=== PATIENT | female | born 1975 | race Caucasian/White ===

== ENCOUNTER → 2016-08-07 | Outpatient (CLI) | payer OTHER ==
--- NOTE | 2016-08-07 08:23 | MR ---
EXAMINATION TYPE: MR lumbar spine wo con DATE OF EXAM: 08/07/2016 6:29 AM COMPARISON: NONE HISTORY: lumbago w/sciatica CONTRAST: 0 mL intravenous MultiHance. TECHNIQUE: Multiplanar, multisequence images of the lumbar spine were acquired. FINDINGS: Cord terminates at the L1 level. L5-S1: No significant disc bulge or disc herniation. No spinal canal stenosis. No foraminal stenosi s. Mild facet hypertrophy is present.. L4-L5: No significant disc bulge or disc herniation. No spinal canal stenosis. No foraminal stenosi s. Mild facet hypertrophy of ligamentum flavum laxity is posterior lateral thecal sac compression. N o Canal stenosis.. L3-L4: No significant disc bulge or disc herniation. No spinal canal stenosis. No foraminal stenosi s. Neural foramen are patent.. L2-L3: No significant disc bulge or disc herniation. No spinal canal stenosis. No foraminal stenosi s. Neural foramen are patent.. L1-L2: No significant disc bulge or disc herniation. No spinal canal stenosis. No foraminal stenosi s. Neural foramen are patent.. T12-L1: No significant disc bulge or disc herniation. No spinal canal stenosis. No foraminal stenos is. Neural foramen are patent.. IMPRESSION: 1. Mild facet hypertrophy L4-5 L5-S1. Some mild posterior lateral thecal sac compression from facet h ypertrophy at the L4-5 level may be present. 2. No significant disc bulge.
== END | disposition home or self-care (01) ==
LOC: RADMRIMAIN 05:47
PROVIDERS: ATTEND Physician Assistant
DX: M46.97 Unspecified inflammatory spondylopathy, lumbosacral region (principal)
CPT/HCPCS: 72148

== ENCOUNTER → 2016-09-15 | Outpatient (CLI) | payer OTHER ==
[2016-09-08 12:27] VITALS: BMI 34.3
[2016-09-15 12:37] VITALS: BP 138/91; PULSE 76; RESP 16; TEMP 97.2
--- NOTE | 2016-09-15 13:07 | P.CONS ---
History of Present Illness - Reason for Consult Consult date: 09/15/16 - Chief Complaint Lower back pain - History of Present Illness This is a 41-year-old female with more than 10 year history of lower back pain with occasional radiation to the left lower extremity down to the left foot. The pain gets worse by putting pressure on the left side of her lower back and sleeping on it also by walking or sitting for too long. The patient denies any bowel or bladder dysfunction or any weakness in the lower extremities. She sometimes feels numbness and tingling in her left leg when the pain is severe. She had an MRI on the lumbar spine which showed mild facet hypertrophy at L4-L5 and L5-S1 with some mild posterior lateral thecal sac compression from facet hypertrophy at the L4 5 level. The patient has a history of Vicodin abuse for which she has been on Suboxone and then vivitrol monthly IM injection. Right now she takes Neurontin 300 mg at night and ibuprofen plus baclofen. Past medical history: The patient has history of bipolar disease and history of opioid abuse. Past surgical history: She had gastric bypass surgery and cholecystectomy Social history: She lives with her daughters she works part-time in her farm she denies using tobacco marijuana or street drugs. Past Medical History Past Medical History: GERD/Reflux, Hypertension, Osteoarthritis (OA) Additional Past Medical History / Comment(s): Chronic low back pain. History of Any Multi-Drug Resistant Organisms: None Reported Past Surgical History: Cholecystectomy, Hernia Repair, Hysterectomy Additional Past Surgical History / Comment(s): gastric bypass Past Anesthesia/Blood Transfusion Reactions: No Reported Reaction Past Psychological History: Anxiety, Bipolar, Depression Smoking Status: Never smoker Past Alcohol Use History: None Reported Past Drug Use History: None Reported - Past Family History Mother Family Medical History: Cancer Medications and Allergies Home Medications Medication Instructions Recorded Confirmed Type Omeprazole [PriLOSEC] 20 mg PO QAM 07/18/14 09/15/16 History Baclofen [Lioresal] 40 mg PO BID 09/08/16 09/15/16 History FLUoxetine HCL [PROzac] 40 mg PO QAM 09/08/16 09/15/16 History Gabapentin [Neurontin] 300 mg PO TID 09/08/16 09/15/16 History OXcarbazepine [Trileptal] 150 mg PO QAM 09/08/16 09/15/16 History Vistaril (Unknown Dose) 1 tab PO DAILY PRN 09/08/16 09/15/16 History Vivitrol 1 injection IM QMONTH 09/08/16 09/15/16 History amLODIPine [Norvasc] 10 mg PO QAM 09/08/16 09/15/16 History lamoTRIgine [LaMICtal] 100 mg PO QAM 09/08/16 09/15/16 History Acetaminophen [Tylenol] 1,000 mg PO TID PRN 09/15/16 09/15/16 History Ibuprofen [Motrin] 800 mg PO TID 09/15/16 09/15/16 History Allergies Allergy/AdvReac Type Severity Reaction Status Date / Time No Known Allergies Allergy Verified 09/15/16 12:30 Physical Exam Vitals: Vital Signs Temp Pulse Resp BP Pulse Ox 09/15/16 12:32 97.2 F L 76 16 138/91 99 - Psychiatric Psychiatric: A&O x's 3, appropriate affect, intact judgment & insight Neuro exam of the lower extremities showed normal muscle strength and symmetrical deep tendon reflexes bilaterally. Straight leg raising test was mildly positive on the left side. Marc's test negative bilaterally. She has tenderness in the lumbar left paravertebral area. She has normal range of motion of the lumbar spine with more pain with flexion than with extension. Lungs are clear to auscultation heart is regular no murmurs Assessment and Plan Plan: This is a 41-year-old female with left lower back pain with occasional radiation to the left lower extremity, however most of her pain is in the lower back area axially. The patient has a remote history of opioid abuse and she does not want to be back on opioids and I totally agree with this decision and encouraged patient to keep in mind that she is at high risk for opioid abuse if she goes back on them space. There is really no need to be onopioids given the mild changes on the lumbar MRI. We will try to control her pain by combination of interventional pain procedures and non-opioid medications. Also will send her to have physical therapy. I will schedule patient to have lumbar bilateral medial branch block under fluoroscopic guidance and if she gets good relief of pain then we can plan on doing frequency ablation in the near future. As a matter of fact the patient admits that she had these injections previously and they worked very well for her. I thank you for the referral
== END ==
LOC: PNWHC3 11:59
PROVIDERS: ATTEND Anesthesiology
DX: M54.5 Low back pain (principal); F41.9 Anxiety disorder, unspecified; F32.9 Major depressive disorder, single episode, unspecified; F31.9 Bipolar disorder, unspecified; Z79.891 Long term (current) use of opiate analgesic; Z79.1 Long term (current) use of non-steroidal anti-inflammatories (NSAID); Z79.899 Other long term (current) drug therapy
CPT/HCPCS: 99211

== ENCOUNTER 2016-12-23 07:00 | Day surgery (SDC) | payer OTHER ==
[2016-12-16 17:34] VITALS: BMI 38.8
[~2016-12-23 07:00] MED LIST: LACTATED RINGERS 1,000 ML IV ONE
[2016-12-23 07:29] VITALS: RESP 16; TEMP 98.1
[2016-12-23] MEDS ORDERED: LIDOCAINE 1% 20 ML VIAL (10MG/ML) FOR IV START SQ ONE (07:30)
--- NOTE | 2016-12-23 08:16 | P.PCN ---
Date of Procedure: 12/23/16 Preoperative Diagnosis: Lumbar spondylosis without myelopathy Postoperative Diagnosis: Same as above Procedure(s) Performed: Bilateral lumbar medial branch block under fluoroscopic guidance for the medial branches L2, L3, L4, and the dorsal ramus of L5. Implants: Anesthesia: other (Moderate conscious sedation with 2 mg of Versed IV) Surgeon: Dede Liu Pathology: none sent Condition: stable Disposition: PACU Indications for Procedure: Operative Findings: Description of Procedure: The patient was seen in the preop holding area consent was obtained then she was brought into the procedure room and placed in prone position. Skin was prepped with DuraPrep and draped in a sterile manner. Lidocaine 1% was used to numb the skin up at the target points that were chosen as follows: For the L5- S1 level which corresponds to the dorsal ramus of L5 the target points were of the superior medial aspect of the sacral ala on each side of the spine on the AP view of fluoroscopy the L2, L3, and L4 medial branches the target points were the connection between the transverse process and the superior articular process of L3, L4, and L5 vertebra respectively on the oblique views of fluoroscopy. I used 22-gauge 3-1/2 inch Quincke spinal needles for this procedure and after contacting bone at the target points mentioned above I injected 1 mL of Marcaine 0.5%. I did not use any steroids for this procedure and also I did not give any IV fentanyl for sedation. Patient tolerated procedure well.
[2016-12-23] MEDS ORDERED: IV FLUID CONTINUATION 1,000 ML IV ONE (08:21)
--- NOTE | 2016-12-23 08:35 | FL ---
Fluoroscopy HISTORY: Pain 9 seconds fluoroscopy time supplied to the referring clinician. 2 intraoperative C-arm images docume nt the procedure. See dictated report from anesthesia.
[2016-12-23 09:03] VITALS: BP 140/87; PULSE 54
== END 2016-12-23 09:17 | disposition home or self-care (01) ==
LOC: ORPAIN 07:00
PROVIDERS: ATTEND Anesthesiology
DX: M47.816 Spondylosis without myelopathy or radiculopathy, lumbar region (principal); I10 Essential (primary) hypertension; E66.9 Obesity, unspecified
CPT/HCPCS: 99152; 99153

== ENCOUNTER → 2017-10-02 | Outpatient (CLI) | payer OTHER ==
--- NOTE | 2017-10-02 17:24 | XR ---
EXAMINATION TYPE: XR hand complete bilateral DATE OF EXAM: 10/02/2017 COMPARISON: NONE HISTORY: Pain and numbness TECHNIQUE: 7 views of both hands FINDINGS: I see no fracture nor dislocation. Metacarpals are intact. There are no erosions. Joint spa art overall are fairly normal. There is no subluxation. IMPRESSION: Negative bilateral hand exam. No sign of inflammatory arthritis.
--- NOTE | 2017-10-02 17:24 | XR ---
EXAMINATION TYPE: XR wrist complete BILATERAL DATE OF EXAM: 10/02/2017 COMPARISON: NONE HISTORY: Wrist and hand pain TECHNIQUE: 8 views FINDINGS: I see no fracture nor dislocation. Joint spaces are normal. There are no erosions. IMPRESSION: Negative bilateral wrist exam. No sign of inflammatory arthritis..
== END | disposition home or self-care (01) ==
LOC: RADXRMAIN 16:49
PROVIDERS: ATTEND Emergency Medicine
DX: M65.841 Other synovitis and tenosynovitis, right hand (principal); M65.842 Other synovitis and tenosynovitis, left hand; R20.9 Unspecified disturbances of skin sensation

== ENCOUNTER → 2017-11-03 | Outpatient (CLI) | payer OTHER ==
--- NOTE | 2017-11-03 09:54 | XR ---
EXAMINATION TYPE: XR hand complete RT DATE OF EXAM: 11/03/2017 CLINICAL HISTORY: Right hand pain most pronounced in the thumb with known repetitive motion in the pa tient's occupation. TECHNIQUE: Frontal, lateral and oblique images of the right hand are obtained. COMPARISON: 10/02/2017. FINDINGS: There is no acute fracture/dislocation evident in the right hand. There is minimal joint s pace narrowing and opposing surface sclerosis of the first carpometacarpal joint of the right hand. T he remaining joint spaces in the right hand appear within normal limits. The overlying soft tissu e appears unremarkable. IMPRESSION: There is no acute fracture or dislocation in the right hand. Minimal arthropathy at the right first carpometacarpal joint.
== END | disposition home or self-care (01) ==
LOC: RADXRMAIN 09:27
PROVIDERS: ATTEND Emergency Medicine
DX: M19.041 Primary osteoarthritis, right hand (principal)

== ENCOUNTER 2018-08-06 00:21 | Emergency (ER) | payer BC, OTHER ==
[2018-08-06 00:39] VITALS: BP 137/85; PULSE 88; RESP 16; TEMP 98.2
--- NOTE | 2018-08-06 00:54 | ED ---
Extremity Problem HPI - General Chief complaint: Extremity Problem,Nontraumatic Stated complaint: R Middle Finger Pain Time Seen by Provider: 08/06/18 00:39 Source: patient, RN notes reviewed Mode of arrival: ambulatory Limitations: no limitations - History of Present Illness Initial comments: 42-year-old female presents emergency from chief complaint of pain to her right hand third digit. Patient states is swollen, and noticed some drainage. Patient states she's been having increasing pain last few days. Patient states started from which she believes she was picking at her cuticles. He states that her hands are very dry from her work. She states she had a work and to section of her work and was exposed to quite call on her hands which dried them out. Patient reports pain around the nail. Patient offers no complaints. - Related Data Home Medications Medication Instructions Recorded Confirmed Omeprazole [PriLOSEC] 20 mg PO QAM 07/18/14 01/14/17 Baclofen [Lioresal] 20 mg PO BID 09/08/16 01/14/17 FLUoxetine HCL [PROzac] 40 mg PO QAM 09/08/16 01/14/17 Gabapentin [Neurontin] 300 mg PO TID 09/08/16 01/14/17 OXcarbazepine [Trileptal] 150 mg PO QAM 09/08/16 01/14/17 Vivitrol 1 injection IM QMONTH 09/08/16 01/14/17 amLODIPine [Norvasc] 10 mg PO QAM 09/08/16 01/14/17 lamoTRIgine [LaMICtal] 100 mg PO QAM 09/08/16 01/14/17 Acetaminophen [Tylenol] 1,000 mg PO TID PRN 09/15/16 01/14/17 Previous Rx's Medication Instructions Recorded Cephalexin [Keflex] 500 mg PO Q6HR #40 cap 08/06/18 Allergies Allergy/AdvReac Type Severity Reaction Status Date / Time No Known Allergies Allergy Verified 08/06/18 00:38 Review of Systems ROS Statement: Those systems with pertinent positive or pertinent negative responses have been documented in the HPI. ROS Other: All systems not noted in ROS Statement are negative. Past Medical History Past Medical History: GERD/Reflux, Hypertension, Osteoarthritis (OA) Additional Past Medical History / Comment(s): Chronic low back pain. History of Any Multi-Drug Resistant Organisms: None Reported Past Surgical History: Cholecystectomy, Hernia Repair, Hysterectomy Additional Past Surgical History / Comment(s): gastric bypass Past Anesthesia/Blood Transfusion Reactions: No Reported Reaction Past Psychological History: Anxiety, Bipolar, Depression Smoking Status: Never smoker Past Alcohol Use History: None Reported Past Drug Use History: None Reported - Past Family History Mother Family Medical History: Cancer General Exam Limitations: no limitations General appearance: alert, in no apparent distress Head exam: Present: atraumatic, normocephalic, normal inspection Respiratory exam: Present: normal lung sounds bilaterally. Absent: respiratory distress, wheezes, rales, rhonchi, stridor Cardiovascular Exam: Present: regular rate, normal rhythm, normal heart sounds. Absent: systolic murmur, diastolic murmur, rubs, gallop, clicks Extremities exam: Present: other (Right hand third digit there is some erythema and swelling noted along the nail fold, there is an open draining area. Patient has Refill less than 2 seconds full range of motion) Course Vital Signs 08/06/18 00:36 Temperature 98.2 F Pulse Rate 88 Respiratory 16 Rate Blood Pressure 137/85 O2 Sat by Pulse 99 Oximetry Medical Decision Making - Medical Decision Making 42-year-old presented for finger pain. Patient does have paronychia which is opened. There is no need for opening at this time. Patient will be placed on Keflex. She is advised to do warm soaks. She is use to avoid any chemical exposure to her digits. There is no evidence of flexor tenosynovitis at this time. She does have full range of motion neurovascular intact. Disposition Clinical Impression: Paronychia of finger of right hand Disposition: HOME SELF-CARE Condition: Stable Instructions (If sedation given, give patient instructions): Paronychia (ED) Additional Instructions: Please return to the Emergency Department if symptoms worsen or any other concerns. Prescriptions: Cephalexin [Keflex] 500 mg PO Q6HR #40 cap Is patient prescribed a controlled substance at d/c from ED?: No Referrals: Juan Hercules III, MD [Primary Care Provider] - 1-2 days Time of Disposition: 00:54
[2018-08-06] MEDS: CEPHALEXIN 500MG STARTER PACK 4 CAP BTL PO STA (01:13)
[2018-08-06] MEDS: ACET/COD 300 MG/30 MG STARTER PACK 6 TAB BTL PO STA (01:13)
== END 2018-08-06 01:18 | disposition home or self-care (01) ==
LOC: EC 00:21
DX: L03.011 Cellulitis of right finger (principal); K21.9 Gastro-esophageal reflux disease without esophagitis; I10 Essential (primary) hypertension; F31.9 Bipolar disorder, unspecified; F41.9 Anxiety disorder, unspecified; Z79.899 Other long term (current) drug therapy
CPT/HCPCS: 99283

== ENCOUNTER 2019-03-17 00:11 | Emergency (ER) | payer BC ==
[2019-03-17] MEDS ORDERED: KETOROLAC 30 MG/ML 1 ML VIAL IVP STA (00:50)
[2019-03-17] MEDS ORDERED: SODIUM CHLORIDE 0.9% 1,000 ML IV STA (00:50)
[2019-03-17] MEDS ORDERED: ONDANSETRON 4 MG/2 ML VIAL IVP STA (00:50)
[2019-03-17 01:14] LABS: Basophils # (A) 0.1 k/uL (0-0.2); Basophils % (A) 1 %; Eosinophils # (A) 0.1 k/uL (0-0.7); Eosinophils % (A) 3 %; HCT 37.8 % (34.0-46.0); Lymphocytes # (A) 1.5 k/uL (1.0-4.8); Lymphocytes % (A) 28 %; MCH 32.1 pg (25.0-35.0); MCHC 34.5 g/dL (31.0-37.0); MCV 93.2 fL (80.0-100.0); Mean Platelet Volume 5.6; Monocytes # (A) 0.3 k/uL (0-1.0); Monocytes % (A) 6 %; Neutrophils # (A) 3.2 k/uL (1.3-7.7); Neutrophils % (A) 60 %; Platelet Count 252 k/uL (150-450); RBC 4.05 m/uL (3.80-5.40); RDW 12.2 % (11.5-15.5); WBC 5.3 k/uL (3.8-10.6)
[2019-03-17 01:21] LABS: Appearance,Urine Clear (Clear); Bilirubin,Urine Negative (Negative); Blood,Urine Large (Negative); Color,Urine Light Red; Glucose,Urine (UA) Negative (Negative); Ketones,Urine Negative (Negative); Leukocyte Esterase,Urine Small (Negative); Nitrite,Urine Negative (Negative); Protein,Urine 1+ (Negative); RBC,Urine >182 /hpf (0-5); Specific Gravity,Urine 1.011 (1.001-1.035); Urobilinogen,Urine <2.0 mg/dL (<2.0)
[2019-03-17 01:22] LABS: ALT 29 U/L (9-52); AST 27 U/L (14-36); African American GFR (CKD) >90 (>60 ml/min/1.73 sqM); Albumin 4.2 g/dL (3.5-5.0); Alkaline Phosphatase 65 U/L (38-126); Amylase 44 U/L (30-110); Anion Gap 6 mmol/L; Blood Urea Nitrogen 13 mg/dL (7-17); Calcium 9.4 mg/dL (8.4-10.2); Carbon Dioxide 29 mmol/L (22-30); Chloride 104 mmol/L (98-107); Glucose 92 mg/dL (74-99); Potassium 3.9 mmol/L (3.5-5.1); Sodium 139 mmol/L (137-145); Total Bilirubin 0.2 mg/dL (0.2-1.3); Total Protein 6.5 g/dL (6.3-8.2)
--- NOTE | 2019-03-17 01:22 | ED ---
Abdominal Pain HPI - General Chief Complaint: Abdominal Pain Stated Complaint: Blood in Urine, Lower Back Pain Time Seen by Provider: 03/17/19 00:41 Source: patient, RN notes reviewed Mode of arrival: ambulatory Limitations: no limitations - History of Present Illness Initial Comments: 43-year-old female presents emergency from chief complaint of low back pain, hematuria. Patient has noticed that her urine over the last couple days but states is more bright red today. Patient has increasing pain. She does have a history kidney stones but this feels worse. Patient states that she's had some nausea no vomiting no diarrhea no constipation or fevers or chills she generalized does not feel well. Patient had a prior hysterectomy denies any chance . Denies any vaginal bleeding. - Related Data Home Medications Medication Instructions Recorded Confirmed Omeprazole [PriLOSEC] 20 mg PO QAM 07/18/14 01/14/17 Baclofen [Lioresal] 20 mg PO BID 09/08/16 01/14/17 FLUoxetine HCL [PROzac] 40 mg PO QAM 09/08/16 01/14/17 Gabapentin [Neurontin] 300 mg PO TID 09/08/16 01/14/17 OXcarbazepine [Trileptal] 150 mg PO QAM 09/08/16 01/14/17 amLODIPine [Norvasc] 10 mg PO QAM 09/08/16 01/14/17 lamoTRIgine [LaMICtal] 100 mg PO QAM 09/08/16 01/14/17 Acetaminophen [Tylenol] 1,000 mg PO TID PRN 09/15/16 01/14/17 Dextroamphetamine/Amphetamine 30 mg PO BID 03/17/19 03/17/19 [Adderall] Meloxicam [Mobic] 15 mg PO DAILY 03/17/19 03/17/19 Previous Rx's Medication Instructions Recorded Cephalexin [Keflex] 500 mg PO Q8HR #21 cap 03/17/19 Phenazopyridine [Pyridium] 200 mg PO TID #6 tablet 03/17/19 Allergies Allergy/AdvReac Type Severity Reaction Status Date / Time No Known Allergies Allergy Verified 08/06/18 00:38 Review of Systems ROS Statement: Those systems with pertinent positive or pertinent negative responses have been documented in the HPI. ROS Other: All systems not noted in ROS Statement are negative. Past Medical History Past Medical History: GERD/Reflux, Hypertension, Osteoarthritis (OA) Additional Past Medical History / Comment(s): Chronic low back pain. History of Any Multi-Drug Resistant Organisms: None Reported Past Surgical History: Cholecystectomy, Hernia Repair, Hysterectomy Additional Past Surgical History / Comment(s): gastric bypass Past Anesthesia/Blood Transfusion Reactions: No Reported Reaction Past Psychological History: Anxiety, Bipolar, Depression Smoking Status: Never smoker Past Alcohol Use History: None Reported Past Drug Use History: None Reported - Past Family History Mother Family Medical History: Cancer General Exam Limitations: no limitations General appearance: alert, in no apparent distress Head exam: Present: atraumatic, normocephalic, normal inspection Eye exam: Present: normal appearance, PERRL, EOMI. Absent: scleral icterus, conjunctival injection, periorbital swelling Neck exam: Present: normal inspection, full ROM. Absent: tenderness, meningismus, lymphadenopathy Respiratory exam: Present: normal lung sounds bilaterally. Absent: respiratory distress, wheezes, rales, rhonchi, stridor Cardiovascular Exam: Present: regular rate, normal rhythm, normal heart sounds. Absent: systolic murmur, diastolic murmur, rubs, gallop, clicks GI/Abdominal exam: Present: soft, tenderness, normal bowel sounds. Absent: distended, guarding, rebound, rigid Back exam: Present: CVA tenderness (L). Absent: CVA tenderness (R) Neurological exam: Present: alert, oriented X3 Skin exam: Present: warm, dry, intact, normal color. Absent: rash Course Vital Signs 03/17/19 00:33 Temperature 97.9 F Pulse Rate 75 Respiratory 20 Rate Blood Pressure 148/87 O2 Sat by Pulse 98 Oximetry Medical Decision Making - Medical Decision Making CT does not reveal any evidence of renal stone. There is some dilation of the renal pelvis felt to be related to an old injury. Patient CT otherwise unremarkable. Patient urinalysis shows hematuria with moderate amount of bacteria. Labs otherwise unremarkable. Patient we treated for hemorrhagic cystitis. Patient was given antiemetics emergency department. Patient was discharged in stable condition. - Lab Data Result diagrams: 03/17/19 01:05 03/17/19 01:05 Lab Results 03/17/19 03/17/19 03/17/19 Range/Units 01:05 01:05 01:05 WBC 5.3 (3.8-10.6) k/uL RBC 4.05 (3.80-5.40) m/uL Hgb 13.0 (11.4-16.0) gm/dL Hct 37.8 (34.0-46.0) % MCV 93.2 (80.0-100.0) fL MCH 32.1 (25.0-35.0) pg MCHC 34.5 (31.0-37.0) g/dL RDW 12.2 (11.5-15.5) % Plt Count 252 (150-450) k/uL Neutrophils % 60 % Lymphocytes % 28 % Monocytes % 6 % Eosinophils % 3 % Basophils % 1 % Neutrophils # 3.2 (1.3-7.7) k/uL Lymphocytes # 1.5 (1.0-4.8) k/uL Monocytes # 0.3 (0-1.0) k/uL Eosinophils # 0.1 (0-0.7) k/uL Basophils # 0.1 (0-0.2) k/uL Sodium 139 (137-145) mmol/L Potassium 3.9 (3.5-5.1) mmol/L Chloride 104 (98-107) mmol/L Carbon Dioxide 29 (22-30) mmol/L Anion Gap 6 mmol/L BUN 13 (7-17) mg/dL Creatinine 0.64 (0.52-1.04) mg/dL Est GFR (CKD-EPI)AfAm >90 (>60 ml/min/1.73 sqM) Est GFR (CKD-EPI)NonAf >90 (>60 ml/min/1.73 sqM) Glucose 92 (74-99) mg/dL Calcium 9.4 (8.4-10.2) mg/dL Total Bilirubin 0.2 (0.2-1.3) mg/dL AST 27 (14-36) U/L ALT 29 (9-52) U/L Alkaline Phosphatase 65 (38-126) U/L Total Protein 6.5 (6.3-8.2) g/dL Albumin 4.2 (3.5-5.0) g/dL Amylase 44 (30-110) U/L Lipase 55 (23-300) U/L Urine Color Light Red Urine Appearance Clear (Clear) Urine pH 6.0 (5.0-8.0) Ur Specific [place] 1.011 (1.001-1.035) Urine Protein 1+ H (Negative) Urine Glucose (UA) Negative (Negative) Urine Ketones Negative (Negative) Urine Blood Large H (Negative) Urine Nitrite Negative (Negative) Urine Bilirubin Negative (Negative) Urine Urobilinogen <2.0 (<2.0) mg/dL Ur Leukocyte Esterase Small H (Negative) Urine RBC >182 H (0-5) /hpf Urine WBC 94 H (0-5) /hpf Disposition Clinical Impression: Hemorrhagic cystitis Disposition: HOME SELF-CARE Condition: Stable Instructions (If sedation given, give patient instructions): Flank Pain (ED), Urinary Tract Infection in Women (DC) Additional Instructions: Please return to the Emergency Department if symptoms worsen or any other concerns. Prescriptions: Cephalexin [Keflex] 500 mg PO Q8HR #21 cap Phenazopyridine [Pyridium] 200 mg PO TID #6 tablet Is patient prescribed a controlled substance at d/c from ED?: No Referrals: Juan Hercules III, MD [Primary Care Provider] - 1-2 days Quentin Watts MD [STAFF PHYSICIAN] - 1-2 days Time of Disposition: 01:57
--- NOTE | 2019-03-17 01:29 | CT ---
EXAMINATION TYPE: CT abdomen pelvis wo con DATE OF EXAM: 03/17/2019 COMPARISON: 07/18/2014 HISTORY: Flank pain CT DLP: 639.8 mGycm Automated exposure control for dose reduction was used. TECHNIQUE: Helical acquisition of images was performed from the lung bases through the pelvis. FINDINGS: Lung bases are clear. There is no pleural effusion. Heart size is normal. There are multiple clips from bariatric gastric surgery. Stomach is intact. There are clips from chol ecystectomy. Bile ducts are not dilated. Spleen appears normal. There is no pancreatic mass. There is no adrenal mass. Kidneys show normal size. There are bilateral multiple renal calculi that m easure up to 8 mm. There is large right renal pelvis. The ureters are not dilated. I see no evidence of a ureteral calculus. Bladder distends smoothly. There is no inguinal hernia. There is no free flui d in the pelvis. There is hysterectomy. There is no mesenteric edema. There is no sign of a bowel obs truction. Appendix appears normal. There is no free air or fluid. There is no ascites. Lumbar spine i s intact. Bony pelvis is intact. IMPRESSION: NORMAL APPENDIX. THERE ARE FEW BILATERAL NONOBSTRUCTING RENAL CALCULI. BILATERAL ENLARGEMENT OF THE L EFT AND RIGHT RENAL PELVIS COULD RELATE TO PREVIOUS EPISODE OF OBSTRUCTION. NO URETERAL STONE SEEN.
[2019-03-17] MEDS ORDERED: HYDROmorphone 0.5 MG/0.5 ML SYRINGE IVP STA (01:55)
[2019-03-17] MEDS ORDERED: cefTRIAXone IN SWFI 1,000 MG/10 ML SYRINGE IVP STA (01:55)
[2019-03-17] MEDS ORDERED: ACET/COD 300 MG/30 MG STARTER PACK 6 TAB BTL PO STA (01:58)
[2019-03-17] MEDS ORDERED: diphenhydrAMINE 50 MG/ML 1 ML VIAL IVP STA (02:31)
[2019-03-17] MEDS ORDERED: LORazepam 2 MG/ML INJ IV STA (03:20)
[2019-03-17 04:32] VITALS: BP 136/87; PULSE 83; RESP 18; TEMP 98.3
== END 2019-03-17 04:32 | disposition home or self-care (01) ==
LOC: EC 00:11
DX: N30.91 Cystitis, unspecified with hematuria (principal); K21.9 Gastro-esophageal reflux disease without esophagitis; I10 Essential (primary) hypertension; F41.9 Anxiety disorder, unspecified; F31.9 Bipolar disorder, unspecified; Z79.1 Long term (current) use of non-steroidal anti-inflammatories (NSAID); Z79.899 Other long term (current) drug therapy; Z98.84 Bariatric surgery status; Z90.49 Acquired absence of other specified parts of digestive tract
CPT/HCPCS: 36415; 93005; 80053; 82150; 83690; 85025; 81001; 87086; 74176; 99284; 96374; 96375 ×5; 96361; J2060; J1200; J2405; J0696; J1885; J1170

== ENCOUNTER 2022-03-28 16:56 | Observation (INO) | payer BC, OTHER ==
--- NOTE | 2022-03-28 17:50 | ED ---
General Adult HPI - General Chief complaint: Psychiatric Symptoms Stated complaint: mental health Time Seen by Provider: 03/28/22 17:14 Source: EMS Mode of arrival: EMS Limitations: no limitations - History of Present Illness Initial comments: Dictation was produced using [employer] dictation software. please excuse any grammatical, word or spelling errors. Chief Complaint: 46-year-old female presents emergency department for suicidal s tatement History of Present Illness: Paced 46-year-old female she is brought in by EMS. Apparently she was brought in because she had made some suicidal comments. According to EMS she mentioned to family that she wanted to hang herself. It is believed that patient feels depressed because recent passing of her nephew. Patient has any medical complaints. She is however a poor historian because of inebriation. Patient is uncooperative. Unable to obtain ROS secondary to mental status PHYSICAL EXAM: General Impression: Alert and oriented x3, not in acute distress, uncooperative HEENT: Normocephalic atraumatic, extra-ocular movements intact, pupils equal and reactive to light bilaterally, mucous membranes moist. Cardiovascular: Heart regular rate and rhythm Chest: Able to complete full sentences, no retractions, no tachypnea Musculoskeletal: no peripheral edema Motor: no focal deficits noted Neurological: CN II-XII grossly intact, no focal motor or sensory deficits noted Skin: Intact with no visualized rashes Psych: Normal affect and mood ED course: 46-year-old well-appearing female presents emergency department to be evaluated for suicidal statements she made. She denies the use such claims at this time. Signs upon arrival are within acceptable limits. Patient admits to alcohol consumption today. She does have an elevated breath alcohol test. Laboratory evaluation obtained. CBC remarkable. Metabolic panel is negative. Serum alcohol is 298. Patient be admitted observation for alcohol intoxication with consultation to psychiatry. Case was discussed with Eve was willing to accept patients care on behalf of [facility] hospitalist group. - Related Data Home Medications Medication Instructions Recorded Confirmed Omeprazole [PriLOSEC] 20 mg PO DAILY 07/18/14 03/28/22 Dextroamphetamine/Amphetamine 30 mg PO BID 03/17/19 03/28/22 [Adderall] FLUoxetine HCL [PROzac] 20 mg PO DAILY 03/28/22 03/28/22 amLODIPine [Norvasc] 5 mg PO DAILY 03/28/22 03/28/22 Allergies Allergy/AdvReac Type Severity Reaction Status Date / Time No Known Allergies Allergy Verified 03/28/22 18:46 Review of Systems ROS Statement: Those systems with pertinent positive or pertinent negative responses have been documented in the HPI. ROS Other: All systems not noted in ROS Statement are negative. Past Medical History Past Medical History: GERD/Reflux, Hypertension, Osteoarthritis (OA) Additional Past Medical History / Comment(s): Chronic low back pain. History of Any Multi-Drug Resistant Organisms: None Reported Past Surgical History: Cholecystectomy, Hernia Repair, Hysterectomy Additional Past Surgical History / Comment(s): gastric bypass Past Anesthesia/Blood Transfusion Reactions: No Reported Reaction Past Psychological History: Anxiety, Bipolar, Depression Smoking Status: Never smoker Past Alcohol Use History: None Reported Past Drug Use History: None Reported - Past Family History Mother Family Medical History: Cancer General Exam Limitations: no limitations Course Vital Signs 03/28/22 17:13 Temperature 98.2 F Pulse Rate 70 Respiratory 18 Rate O2 Sat by Pulse 100 Oximetry Medical Decision Making - Lab Data Result diagrams: 03/28/22 17:53 03/28/22 17:53 Lab Results 03/28/22 03/28/22 Range/Units 17:53 17:53 WBC 5.5 (3.8-10.6) k/uL RBC 4.77 (3.80-5.40) m/uL Hgb 15.0 (11.4-16.0) gm/dL Hct 43.3 (34.0-46.0) % MCV 90.9 (80.0-100.0) fL MCH 31.4 (25.0-35.0) pg MCHC 34.6 (31.0-37.0) g/dL RDW 13.3 (11.5-15.5) % Plt Count 204 (150-450) k/uL MPV 7.6 Neutrophils % 60 % Lymphocytes % 32 % Monocytes % 3 % Eosinophils % 2 % Basophils % 1 % Neutrophils # 3.3 (1.3-7.7) k/uL Lymphocytes # 1.8 (1.0-4.8) k/uL Monocytes # 0.2 (0-1.0) k/uL Eosinophils # 0.1 (0-0.7) k/uL Basophils # 0.0 (0-0.2) k/uL Sodium 144 (137-145) mmol/L Potassium 3.3 L (3.5-5.1) mmol/L Chloride 106 (98-107) mmol/L Carbon Dioxide 24 (22-30) mmol/L Anion Gap 14 mmol/L BUN 13 (7-17) mg/dL Creatinine 0.59 (0.52-1.04) mg/dL Est GFR (CKD-EPI)AfAm >90 (>60 ml/min/1.73 sqM) Est GFR (CKD-EPI)NonAf >90 (>60 ml/min/1.73 sqM) Glucose 100 H (74-99) mg/dL Calcium 8.5 (8.4-10.2) mg/dL Serum Alcohol 298 H* mg/dL Disposition Clinical Impression: Suicidal ideation, Alcohol intoxication Disposition: ADMITTED IP TO THIS HOSP Condition: Fair Referrals: None,Stated [Primary Care Provider] - 1-2 days Decision Time: 19:28
[2022-03-28 18:00] LABS: Basophils % (A) 1 %; Eosinophils # (A) 0.1 k/uL (0-0.7); Eosinophils % (A) 2 %; HCT 43.3 % (34.0-46.0); Lymphocytes # (A) 1.8 k/uL (1.0-4.8); Lymphocytes % (A) 32 %; MCH 31.4 pg (25.0-35.0); MCHC 34.6 g/dL (31.0-37.0); MCV 90.9 fL (80.0-100.0); Mean Platelet Volume 7.6; Monocytes # (A) 0.2 k/uL (0-1.0); Monocytes % (A) 3 %; Neutrophils # (A) 3.3 k/uL (1.3-7.7); Neutrophils % (A) 60 %; Platelet Count 204 k/uL (150-450); RBC 4.77 m/uL (3.80-5.40); RDW 13.3 % (11.5-15.5); WBC 5.5 k/uL (3.8-10.6)
[2022-03-28 18:19] LABS: African American GFR (CKD) >90 (>60 ml/min/1.73 sqM); Anion Gap 14 mmol/L; Blood Urea Nitrogen 13 mg/dL (7-17); Calcium 8.5 mg/dL (8.4-10.2); Carbon Dioxide 24 mmol/L (22-30); Chloride 106 mmol/L (98-107); Glucose 100 mg/dL (74-99); Non-African American GFR(CKD) >90 (>60 ml/min/1.73 sqM); Potassium 3.3 mmol/L (3.5-5.1); Sodium 144 mmol/L (137-145)
[2022-03-28 18:23] LABS: Alcohol 298 mg/dL
[2022-03-28] MEDS ORDERED: NALOXONE 0.4 MG/ML 1 ML VIAL IV PRN (19:26)
[2022-03-28] MEDS ORDERED: LORazepam 1 MG TAB PO PRN ×4 (21:03)
[2022-03-28] MEDS ORDERED: THIAMINE 100 MG/ML 2 ML VIAL IM STA (21:03)
[2022-03-28] MEDS ORDERED: ONDANSETRON 4 MG/2 ML VIAL IVP PRN (21:04)
[2022-03-28] MEDS ORDERED: POTASSIUM CHLORIDE ER 20 MEQ TAB.ER PO STA ×2 (21:05)
[2022-03-28] MEDS: LORazepam 0.5 MG TAB PO PRN (23:22)
[2022-03-29] MEDS ORDERED: PANTOPRAZOLE 40 MG/10 ML VIAL IVP SCH (09:00)
[2022-03-29] MEDS: FLUoxetine HCL 20 MG CAP PO SCH (09:41)
[2022-03-29] MEDS: amLODIPine 5 MG TAB PO SCH (09:41)
[2022-03-29] MEDS: FOLIC ACID 1 MG TAB PO SCH (09:41)
[2022-03-29] MEDS: MULTIVITAMINS, THERA 1 EACH TAB PO SCH (09:42)
[2022-03-29] MEDS: THIAMINE 100 MG TAB PO SCH (09:42)
[2022-03-29] MEDS: HEPARIN SODIUM,PORCINE/PF 5,000 UNIT/0.5 ML SYRINGE SQ SCH ×2 (09:42→19:28)
[2022-03-29 11:37] LABS: Urine Alcohol Positive (Negative)
[2022-03-29 11:38] LABS: Urine Barbiturate Negative (Negative); Urine Cocaine Negative (Negative); Urine Methadone Negative (Negative); Urine Opiates Negative (Negative); Urine Phencyclidine Negative (Negative)
[2022-03-29] MEDS: ACETAMINOPHEN TAB 325 MG TAB PO PRN ×2 (13:11→19:27)
[2022-03-29] MEDS: LORazepam 0.5 MG TAB PO PRN (16:13)
[2022-03-29] MEDS ORDERED: MELATONIN 3 MG TABLET PO SCH (21:00)
--- NOTE | 2022-03-29 21:13 | P.HPIM ---
History of Present Illness H&P Date: 03/29/22 Chief Complaint: Alcohol intoxication Patient is a 46-year-old female with a known history of hypertension, osteoarthritis, GERD, bipolar disorder, daily alcohol use was brought to the hospital due to alcohol intoxication and also suicidal ideation. Patient apparently upset with her mother and made some comments about suicidal ideation. Patient was brought to the hospital by EMS. Patient states that she was very intoxicated at time and she did not mean to say that. Denies any complaints of nausea vomiting abdominal pain or diarrhea. No cough or sputum production. No recent illnesses. No chest pain or shortness of breath. No fever or chills. Laboratory data showed WBC 5.4 hemoglobin 14.0 and platelets 204 BUN 14 and creatinine 0.49 sodium 144 potassium 3.3 chloride 106 bicarb is 24 UDS is negative. Serum alcohol level is 298. Review of Systems Constitutional: Patient denies any fever or chills . no Generalized weakness. Abdomen: Patient denied any nausea or vomiting or abd. pain Cardiovascular: Patient denies any chest pain or short of breath no palpitations. Respiratory: patient denied any cough . no sputum production. No shortness of breath Neurologic: Patient denied any numbness or tingling headache. Musculoskeletal: Patient denies any complaints of joint swelling or deformity. Skin: Negative Psychiatric: Negative Endocrine: No heat or cold intolerance. No recent weight gain. Genitourinary: No dysuria or hematuria. All other 14 point ROS negative except the above Past Medical History Past Medical History: GERD/Reflux, Hypertension, Osteoarthritis (OA) Additional Past Medical History / Comment(s): Chronic low back pain. History of Any Multi-Drug Resistant Organisms: None Reported Past Surgical History: Cholecystectomy, Hernia Repair, Hysterectomy Additional Past Surgical History / Comment(s): gastric bypass Past Anesthesia/Blood Transfusion Reactions: No Reported Reaction Past Psychological History: Anxiety, Bipolar, Depression Smoking Status: Never smoker Past Alcohol Use History: Daily Additional Past Alcohol Use History / Comment(s): Pt states she drinks daily but is unsure how many drinks per day. - Past Family History Mother Family Medical History: Cancer Medications and Allergies Home Medications Medication Instructions Recorded Confirmed Type Omeprazole [PriLOSEC] 20 mg PO DAILY 07/18/14 03/28/22 History Dextroamphetamine/Amphetamine 30 mg PO BID 03/17/19 03/28/22 History [Adderall] FLUoxetine HCL [PROzac] 20 mg PO DAILY 03/28/22 03/28/22 History amLODIPine [Norvasc] 5 mg PO DAILY 03/28/22 03/28/22 History Allergies Allergy/AdvReac Type Severity Reaction Status Date / Time No Known Allergies Allergy Verified 03/28/22 18:46 Physical Exam Vitals: Vital Signs Temp Pulse Pulse Resp BP BP Pulse Ox 03/29/22 07:00 98.2 F 83 16 174/79 97 03/28/22 20:45 98.2 F 89 17 110/51 97 03/28/22 19:49 82 18 126/76 99 03/28/22 17:13 98.2 F 70 18 100 Intake and Output 03/28/22 03/29/22 03/29/22 22:59 06:59 14:59 Intake Total 0 Balance 0 Intake: Oral 0 Other: Voiding Method Toilet # Voids 1 0 Weight 72.575 kg PHYSICAL EXAMINATION: Patient is lying in the bed comfortably, no acute distress, awake alert and oriented.. HEENT: Normocephalic. Neck is supple. Pupils reactive. Nostrils clear. Oral cavity is moist. Neck reveals no JVD, carotid bruits, or thyromegaly. CHEST EXAMINATION: Trachea is central. Symmetrical expansion. Lung marin clear to auscultation and percussion. CARDIAC: Normal S1, S2 with no gallops. No murmurs ABDOMEN: Soft. Bowel sounds present. Nontender. No organomegaly. No abdominal bruits. Extremities: reveal no edema. No clubbing or cyanosis Neurologically awake, alert, oriented x3 with well-coordinated movements. No focal deficits noted Skin: No rash or skin lesions. Psychiatric: Coperative. Nonsuicidal, Musculoskeletal: No joint swelling or deformity. Normal range of motion. Results CBC & Chem 7: 03/28/22 17:53 03/29/22 11:13 Labs: Abnormal Lab Results - Last 24 Hours (Table) 03/28/22 Range/Units 17:53 Potassium 3.3 L (3.5-5.1) mmol/L Glucose 100 H (74-99) mg/dL Serum Alcohol 298 H* mg/dL Thrombosis Risk Factor Assmnt - DVT/VTE Prophylaxis DVT/VTE Prophylaxis: Pharmacologic Prophylaxis ordered - Choose All That Apply Each Factor Represents 1 point: Age 41-60 years, Obesity (BMI >25) Thrombosis Risk Factor Assessment Total Risk Factor Score: 2 Thrombosis Risk Factor Assessment Level: Low Risk Assessment and Plan Assessment: Acute alcohol intoxication Acute suicidal thoughts exposed to her mother while she was upset. Anxiety/depression bipolar disorder and prior inpatient psychiatric admissions Hypertension GERD Osteoarthritis Chronic low back pain DVT prophylaxis with heparin subcu Plan: Patient with continued IV hydration and continued alcohol withdrawal protocol. Continue with thiamine multivitamins and folic acid. Psychiatry was consulted. Continue with bedside sitter and follow-up closely. Alcohol abstinence has been counseled extensively.
[2022-03-30] MEDS: ACETAMINOPHEN TAB 325 MG TAB PO PRN ×2 (06:54→16:34)
[2022-03-30] MEDS ORDERED: PANTOPRAZOLE 40 MG TABLET PO SCH (07:30)
[2022-03-30] MEDS: MULTIVITAMINS, THERA 1 EACH TAB PO SCH (08:33)
[2022-03-30] MEDS: FLUoxetine HCL 20 MG CAP PO SCH (08:33)
[2022-03-30] MEDS: THIAMINE 100 MG TAB PO SCH (08:33)
[2022-03-30] MEDS: amLODIPine 5 MG TAB PO SCH (08:33)
[2022-03-30] MEDS: FOLIC ACID 1 MG TAB PO SCH (08:34)
[2022-03-30] MEDS: HEPARIN SODIUM,PORCINE/PF 5,000 UNIT/0.5 ML SYRINGE SQ SCH (08:34)
[2022-03-30 16:21] VITALS: BP 164/82; PULSE 73; RESP 18; TEMP 98.7
--- NOTE | 2022-03-31 00:18 | P.CN ---
Psychiatric Consult - . Consult date: 03/30/22 Consult:: IDENTIFYING DATA: This patient is a 46 year old female living with her parents and grandmother with history of mood disorder and alcohol use disorder. REASON FOR REFERRAL: Psychiatry was consulted for SI HISTORY OF PRESENT ILLNESS: The patient presented to the hospital, per chart, was " she is brought in by EMS. Apparently she was brought in because she had made some suicidal comments. According to EMS she mentioned to family that she wanted to hang herself. It is believed that patient feels depressed because recent passing of her nephew. Patient has any medical complaints. She is however a poor historian because of inebriation. Patient is uncooperative." BAL 298 on arrival in the ER 03/28/22. . At this time patient denies any suicidal or homical ideations, intent or plan. Patient denies any auditory, visual hallucinations and denies any paranoia or delusions. Patients admits to using [] On my assessment, patient was found sitting in her chair with sitter at bedside. Patient appears to utilize the defense mechanisms of denial and minimization and appears to be an unreliable historian. She states that she had been drinking and arguing with her mother, and states she made a "smart ass", about about her mother is going to lose her as a daughter. Patient claims she was just upset because of arguing with her mother and appears to minimize the events leading up to her hospital admission. She reports her nephew unexpectedly at the age of 32 in October 2021 and this has been a big stressor for her. Her responses appeared vague and evasive. is a long history of family tragedies including her brother in a fire and the other brother completed suicide that she believes is from guilts from not being able to save the other brother. Her brother who completed suicide is the father of her nephew. A nephew is an alcoholic and over the summer stopped eating and later in his sleep. She reports that HE results are still pending which is another stressor for her. She reports depressed mood, difficulty sleeping. Her home medications are Prozac 20 mg, Adderall 30 mg twice daily and melatonin. She reports she was previously on Lamictal and Trileptal in addition to the Prozac which she reports worked well for her but she stopped the Lamictal and Trileptal about 2 years ago for unknown reasons. She gives me permission to contact her mother Jessica [phone]. Salome reports patient has been increasingly depressed and agitated, has been drinking heavily and has been hostile. Salome reports patient threatened to go to the barn and hitting herself incomplete suicide as her brother had done. Mother reports she is concerned that patient will kill herself since she has said that she wants to and be with her brothers. Other also reports patient has been hospitalized many times for alcohol dependence. Currently denies alcohol withdrawal symptoms. Patient admits to drinking liquor daily, reports she drinks a shot of vodka daily but has been drinking up height of vodka on the day of arrival to ER. She reports she is tried marijuana in the past. She denies tobacco use. PAST PSYCHIATRIC HISTORY: Patient has a a history of bipolar disorder, MDD, ADD and anxiety. He was previously on Lamictal and Trileptal in addition to the Prozac which she reports worked well but the Lamictal and Trileptal were discontinued 2 years ago for unknown reasons. She is currently on Prozac 20 mg daily and Adderall 30 mg twice daily in addition to melatonin. She reports 2 prior psychiatric hospitalizations. Patient denies any psychiatric outpatient follow-up. Patient has history of suicide attempt by Vicodin overdose about 25 years ago. PAST MEDICAL HISTORY: Past Medical History: GERD/Reflux, Hypertension, Osteoarthritis (OA) Additional Past Medical History / Comment(s): Chronic low back pain. History of Any Multi-Drug Resistant Organisms: None Reported Past Surgical History: Cholecystectomy, Hernia Repair, Hysterectomy Additional Past Surgical History / Comment(s): gastric bypass Past Anesthesia/Blood Transfusion Reactions: No Reported Reaction Past Psychological History: Anxiety, Bipolar, Depression Smoking Status: Never smoker Past Alcohol Use History: Daily Additional Past Alcohol Use History / Comment(s): Pt states she drinks daily but is unsure how many drinks per day. ALLERGIES: as per EMR. CHEMICAL DEPENDENCY HISTORY: as per HPI. FAMILY PSYCHIATRIC/SUBSTANCE USE HISTORY: Brother completed suicide. Nephew with alcoholism, in October 2021. SOCIAL HISTORY: , has 2 adult daughters and grandchildren. Lives with her mother, father and grandmother. Nephew was living with him until he in October 2021. MENTAL STATUS EXAM: General Appearance: Patient appears to be stated age, hair buzzed short on the sides, multiple tattoos is alert. Behavior: Patient is sitting in chair, becomes restless and demanding to go home. Speech: Patient's speech is fluent and non-pressured. Mood/Affect: Patient reports their mood is "depressed", affect is congruent Suicidality/Homicidality: Patient has voiced thoughts of suicide with plan to hang herself; denies homicidal ideations Perceptions: Patient denies any visual hallucinations and denies any auditory hallucinations Though content/process: There is no evidence of any delusional thought content and thought process is linear and goal-directed. Memory and concentration: AOX3, grossly intact for the purposes of this session. Judgment and insight: poor IMPRESSIONS: Major depressive disorder, recurrent severe without psychotic features, rule out Bipolar II disorder Alcohol use disorder, severe Alcohol withdrawal, on CIWA Rule out Cluster B personality disorder PLAN: -At this time patient DOES meet criteria for inpatient psychiatric admission. -Would recommend the following medication changes/additions: Increase Prozac to 40 mg daily for anxiety/depression. -CIWA protocol with PRN Ativan for alcohol withdrawal. Continue to monitor vital signs. -Continue 1:1 sitter for safety -Cannot leave AMA at this time. Patient will need a petition and certification if attempting to leave AMA. -When medically stable, patient is eligible for transfer to a psych bed when available. -Communicated plan to patient's nurse -Will continue to follow along -Please contact with any questions. 03/30/22 12:08 03/30/22 23:57
== END 2022-03-30 18:18 ==
LOC: EC 16:56 → 6NMEDSUR 19:26
PROVIDERS: ADMIT Hospitalist; ATTEND Hospitalist
DX: R45.851 Suicidal ideations (principal); F10.229 Alcohol dependence with intoxication, unspecified; F10.239 Alcohol dependence with withdrawal, unspecified; I10 Essential (primary) hypertension; K21.9 Gastro-esophageal reflux disease without esophagitis; G89.29 Other chronic pain; M54.50 Low back pain, unspecified; F31.81 Bipolar II disorder; F41.9 Anxiety disorder, unspecified; Z79.899 Other long term (current) drug therapy; Y90.8 Blood alcohol level of 240 mg/100 ml or more; Z20.822 Contact with and (suspected) exposure to COVID-19
CPT/HCPCS: 96372 ×3; 82075; 99285; 36415; 80048; 84132; 85025; 80306; 87635; G0378 ×3; G0480; J3411; J1644 ×2; 80320

== ENCOUNTER 2022-03-30 18:51 | Inpatient (IN) | payer MEDICAID ==
[2022-03-30] MEDS ORDERED: MAGNESIUM HYDROXIDE 2,400 MG/10 ML CUP PO PRN (18:55)
[2022-03-30] MEDS ORDERED: LORazepam 1 MG TAB PO PRN (18:55)
[2022-03-30] MEDS ORDERED: HALOPERIDOL LACTATE 5 MG/ML 1 ML VIAL IM PRN (18:55)
[2022-03-30] MEDS ORDERED: MAG HYDROX/AL HYDROX/SIMETH 30 ML CUP PO PRN (18:55)
[2022-03-30] MEDS ORDERED: LORazepam 1 MG/0.5 ML VIAL IM PRN (18:59)
[2022-03-30] MEDS ORDERED: haloperidoL 5 MG TAB PO PRN (19:00)
[2022-03-30] MEDS: chlordiazePOXIDE 25 MG CAP PO SCH (20:32)
[2022-03-30] MEDS: diazePAM 5 MG TAB PO SCH (20:32)
[2022-03-31] MEDS: PANTOPRAZOLE 40 MG TABLET PO SCH (08:56)
[2022-03-31] MEDS: THIAMINE 100 MG TAB PO SCH (08:56)
[2022-03-31] MEDS: amLODIPine 5 MG TAB PO SCH (08:56)
[2022-03-31] MEDS: FLUoxetine HCL 20 MG CAP PO SCH (08:57)
[2022-03-31] MEDS: MULTIVITAMINS, THERA 1 EACH TAB PO SCH (08:57)
[2022-03-31] MEDS: FOLIC ACID 1 MG TAB PO SCH (08:57)
[2022-03-31] MEDS: diazePAM 5 MG TAB PO SCH ×3 (08:58→21:17)
[2022-03-31] MEDS: chlordiazePOXIDE 25 MG CAP PO SCH (08:58)
[2022-03-31] MEDS ORDERED: NICOTINE 14MG/24HR PATCH TRANSDERM SCH (09:00)
--- NOTE | 2022-03-31 15:13 | P.HP ---
Psychiatric H&P - . H&P Date: 03/31/22 History & Physical: Allergies Allergy/AdvReac Type Severity Reaction Status Date / Time No Known Allergies Allergy Verified 03/28/22 18:46 Vital Signs Temp 97.7 F 03/30/22 19:23 Pulse 106 H 03/30/22 19:23 Resp 16 03/30/22 19:23 BP 144/83 03/30/22 19:23 Pulse Ox 97 03/30/22 19:23 FiO2 Intake & Output 03/30/22 03/31/22 03/31/22 18:59 06:59 18:59 Weight 72.5 kg 70.4 kg Laboratory Last Values TSH 0.360 mIU/L (0.465-4.680) L 03/31/22 10:05 03/31/22 14:50 Identification: Romi Wheatley is a 46-year-old female living with her parents and grandmother who was transferred from medical unit for psychiatric recommendation since she was considered to be suicidal and may have mood disorder. History of present illness: Patient said her nephew had on 11/19/2021 and there were some legal problems about his inheritance. She and her mother had some arguments and disagreements about it. She said she was drinking and in her room had an argument with mother and apparently made some remark which the mother took as a suicide risk and called police. She was taken to the ER and was in the medical floor until she was sent here yesterday. She denies suicide thoughts and insists that she never intended to do anything to hurt herself. She said she may have said something when she was under the influence of alcohol. Apparently her blood alcohol level was 298 in the ER before she was sent to the medical unit. She insists that she does not have any current psychiatric issues and has been taking her Prozac and Adderall as prescribed by her doctors. She insists that her mood has been stable, is not depressed and has no intention of hurting herself. She denies any of the psychiatric symptoms. Previous psychiatric history/alcohol and drug abuse she said she had ECT 20 years ago. She said she was on Prozac Trileptal and Lamictal in the past and is currently only on Prozac and Adderall for ADD. She said she was sober for about 8 years and started to drink alcohol again in October of this year she said she may drink a half pint per week. However her blood alcohol level was 298 as noted above. She denies abusing other drugs. Social history: She is currently and lives with her mother and stepfather and grandmother. She takes care of them and does not have a regular job she does not get any checks. She had graduated from high school and did not have any problem in learning or any major problem in concentrating when she was going to school. She did not have to repeat any classes or grades. She did not have any discipline problems when she was growing up. She was not in the service. She is [employer] but does not go to hinduism. She denies any history of abuse. Previous medical history she said she has hypertension GERD and had gastric bypass for obesity several years ago she also had hysterectomy 14 years ago she has 2 children and had 1 spontaneous . She is not ALLERGIC to any medication. Family history: She said her mother has hypertension diabetes and COPD she also had partial amputation of right foot because of the diabetes complication. Her grandmother has early signs of dementia. Mental status examination: This is a white ambulatory female with good hygiene. She is polite cheerful and friendly. She does not show any psychomotor agitation or retardation. She is edentulous on her maxilla. Her speech is spontaneous relevant and goal-directed. Her mood is cheerful and affect is appropriate to the thought content. She denies hallucinations and delusional th inking. She denies suicide and homicide thoughts. She is well oriented with good memory and concentration. Strengths: Has a place to live and has high school diploma. Weakness: Alcohol abuse. Diagnostic impression: Alcohol intoxication with alcohol use disorder. History of depression with these well-controlled. History of treatment for ADD even though she does not have history suggestive of ADD. Interpersonal problem with family and legal problem regarding her a few. Treatment plan: She had her physical examination when she was on the medical unit. She was started on Valium and Librium since this is a polypharmacy we will discontinue Librium and continue Valium. We will also continue her Prozac as she was taking in the past. She will receive group therapy individual maia. She will also receive recreational therapy and occupational therapy. silver spray worker will gather more information and her treatment and discharge plan would be discussed tomorrow in the treatment team meeting.
[2022-03-31] MEDS: LORazepam 1 MG TAB PO PRN (17:26)
[2022-03-31 18:27] LABS: LDL Cholesterol,Calculated 135.1 mg/dL (0.0-131.0)
[2022-04-01] MEDS: FLUoxetine HCL 20 MG CAP PO SCH (09:02)
[2022-04-01] MEDS: FOLIC ACID 1 MG TAB PO SCH (09:02)
[2022-04-01] MEDS: MULTIVITAMINS, THERA 1 EACH TAB PO SCH (09:02)
[2022-04-01] MEDS: THIAMINE 100 MG TAB PO SCH (09:02)
[2022-04-01] MEDS: diazePAM 5 MG TAB PO SCH ×2 (09:02→20:52)
[2022-04-01] MEDS: amLODIPine 5 MG TAB PO SCH (09:02)
[2022-04-01] MEDS: PANTOPRAZOLE 40 MG TABLET PO SCH (09:02)
--- NOTE | 2022-04-01 10:10 | P.MDCNMH ---
History of Present Illness H&P Date: 03/31/22 Chief Complaint: Suicidal ideation Patient is a 46-year-old female with a known history of hypertension, osteoarthritis, GERD, bipolar disorder, daily alcohol use was brought to the hospital due to alcohol intoxication and also suicidal ideation. Patient apparently upset with her mother and made some comments about suicidal ideation. Patient was brought to the hospital by EMS. Patient was intoxicated on admission. Patient was seen by psychiatry and recommended inpatient psych admission. Does have significant family history of depression. Patient is currently in the inpatient psychiatric unit. Denied any complaints of chest pain or shortness of breath. No nausea vomiting or abdominal pain or diarrhea. No headache or dizziness or dizziness. No cough or sputum production. No fever no chills. 04/01/2022 Patient was found to have low TSH level 0.36. Free and total T4 level was ordered. We will continue to follow. Review of Systems Constitutional: Patient denies any fever or chills . No generalized weakness or weight loss. Abdomen: Patient denied nausea vomiting and diarrhea and abdominal pain. Cardiovascular: Patient denies any chest pain or short of breath no palpitations. Respiratory: patient denied any cough is from production. No shortness of breath Neurologic: Patient denied any numbness or tingling headache. Musculoskeletal: Patient denies any complaints of joint swelling or deformity. Skin: Negative Psychiatric: Negative Endocrine: No heat or cold intolerance. No recent weight gain. Genitourinary: No dysuria or hematuria. All other 14 point ROS negative except the above Past Medical History Past Medical History: GERD/Reflux, Hypertension, Osteoarthritis (OA) Additional Past Medical History / Comment(s): Chronic low back pain. History of Any Multi-Drug Resistant Organisms: None Reported Past Surgical History: Cholecystectomy, Hernia Repair, Hysterectomy Additional Past Surgical History / Comment(s): gastric bypass Past Anesthesia/Blood Transfusion Reactions: No Reported Reaction Past Psychological History: Anxiety, Bipolar, Depression Smoking Status: Never smoker Past Alcohol Use History: Daily Additional Past Alcohol Use History / Comment(s): Pt states she drinks daily but is unsure how many drinks per day. - Past Family History Mother Family Medical History: Cancer Medications and Allergies Home Medications Medication Instructions Recorded Confirmed Type Omeprazole [PriLOSEC] 20 mg PO DAILY 07/18/14 03/30/22 History Dextroamphetamine/Amphetamine 30 mg PO BID 03/17/19 03/30/22 History [Adderall] FLUoxetine HCL [PROzac] 20 mg PO DAILY 03/28/22 03/30/22 History amLODIPine [Norvasc] 5 mg PO DAILY 03/28/22 03/30/22 History Allergies Allergy/AdvReac Type Severity Reaction Status Date / Time No Known Allergies Allergy Verified 03/28/22 18:46 Physical Exam Vitals: Vital Signs Temp Pulse Resp BP Pulse Ox 03/30/22 19:23 97.7 F 106 H 16 144/83 97 Intake and Output 03/30/22 03/31/22 03/31/22 22:59 06:59 14:59 Other: Weight 70.4 kg PHYSICAL EXAMINATION: Patient is lying in the bed comfortably, no acute distress, awake alert and oriented.. HEENT: Normocephalic. Neck is supple. Pupils reactive. Nostrils clear. Oral cavity is moist. Neck reveals no JVD, carotid bruits, or thyromegaly. CHEST EXAMINATION: Trachea is central. Symmetrical expansion. Lung marin clear to auscultation and percussion. CARDIAC: Normal S1, S2 with no gallops. No murmurs ABDOMEN: Soft. Bowel sounds normal. No organomegaly. No abdominal bruits. Extremities: reveal no edema. No clubbing or cyanosis Neurologically awake, alert, oriented x3 with well-coordinated movements. No focal deficits noted Skin: No rash or skin lesions. Psychiatric: Coperative. Nonsuicidal Musculoskeletal: No joint swelling or deformity. Normal range of motion. Cranial Nerve Examination - Cranial Nerves Cranial Nerve I- Olfactory: Intact Cranial Nerve II- Optic: Intact Cranial Nerve III- Oculomotor: Intact Cranial Nerve IV- Trochlear: Intact Cranial Nerve V- Trigeminal: Intact Cranial Nerve - Abducens: Intact Cranial Nerve VII- Facial: Intact Cranial Nerve VIII- Auditory: Intact Cranial Nerve IX- Glossopharyngeal: Intact Cranial Nerve X- Vagus: Intact Cranial Nerve XI- Accessory: Intact Cranial Nerve XII- Hypoglossal: Intact Assessment and Plan Assessment: Acute alcohol intoxication on admission. Acute suicidal thoughts expressed to her mother while she was upset. Anxiety/depression bipolar disorder and prior inpatient psychiatric admissions Hypertension GERD Osteoarthritis Chronic low back pain DVT prophylaxis with early ambulation. GI prophylaxis with PPI Plan: Patient will be continued on current psychiatric management and plan. Continue with alcohol withdrawal protocol. Thiamine and multivitamins. Continue with amlodipine and follow-up blood pressure. Continue pain management with Tylenol. Follow-up CBC BMP and TSH and free T4 level. We will continue to follow and further recommendations based on the clinical course.
[2022-04-01] MEDS: ACETAMINOPHEN TAB 325 MG TAB PO PRN (10:37)
--- NOTE | 2022-04-01 12:24 | P.PN ---
Progress Note - Text Progress Note Date: 04/01/22 S&O: Patient was seen in rounds this morning and her case was discussed by the treatment team this morning. Patient feels better, continues to deny suicide and homicide thoughts, does not have any withdrawal symptoms from alcohol and she does not have any complaints. She does not participate much in her group and other unit activities. She insists that she can go home after discharge. She agreed not to drink alcohol anymore after discharge. This is a right ambulatory female with good hygiene. She does not show any psychomotor agitation or retardation. Her speech is spontaneous relevant and goal-directed. Her mood is euthymic to cheerful and affect is appropriate to the thought content. She denies hallucinations, delusional thinking, suicide and homicidal thoughts. Her sensorium is clear. A&P: Continue Prozac and her withdrawal protocol. Decrease Valium from 10 mg 3 times a day 2 twice a day. She will be considered for discharge tomorrow if everything goes well today.
[2022-04-01] MEDS: LORazepam 1 MG TAB PO PRN ×2 (12:45→22:22)
[2022-04-02] MEDS: ACETAMINOPHEN TAB 325 MG TAB PO PRN (05:21)
[2022-04-02] MEDS: LORazepam 1 MG TAB PO PRN (05:21)
[2022-04-02 07:03] VITALS: BP 118/56; PULSE 66; RESP 14; TEMP 97.2
[2022-04-02] MEDS: THIAMINE 100 MG TAB PO SCH (08:57)
[2022-04-02] MEDS: amLODIPine 5 MG TAB PO SCH (08:57)
[2022-04-02] MEDS: MULTIVITAMINS, THERA 1 EACH TAB PO SCH (08:58)
[2022-04-02] MEDS: FLUoxetine HCL 20 MG CAP PO SCH (08:58)
[2022-04-02] MEDS: PANTOPRAZOLE 40 MG TABLET PO SCH (08:58)
[2022-04-02] MEDS: FOLIC ACID 1 MG TAB PO SCH (08:58)
[2022-04-02] MEDS: diazePAM 5 MG TAB PO SCH (08:59)
--- NOTE | 2022-04-02 11:59 | P.DS ---
Providers Date of admission: 03/30/22 18:51 Expected date of discharge: 04/02/22 Attending physician: Wes Castro MD Consults: 03/30/22 18:55 Consult Physician Routine Consulting Provider: Drew Lucero Consult Reason/Comments: medical management Do you want consulting provider notified?: Already Contacted Primary care physician: Stated None - Discharge Diagnosis(es) (1) Alcohol dependence Current Visit: Yes Status: Acute Priority: Medium (2) Depressive disorder Current Visit: Yes Status: Acute Priority: High (3) Alcohol intoxication Current Visit: No Status: Acute Priority: Medium Hospital Course: Patient had her psychiatric H&P done by me on 03/31/2022 and medical H&P done by on the same day. She was continued on her Prozac 40 mg a day and her Adderall was discontinued after H&P since she did not have any ADHD symptoms when she was growing up. She tolerated this change very well and did not have any adverse effects. She continued not to have suicidal thoughts and was not feeling depressed. Her condition was discussed by the treatment team this morning and it was agreed to discharge her today. She did attend her groups and individual therapies in the unit. She did not have any withdrawal symptoms from alcohol either. Patient Condition at Discharge: Good Plan - Discharge Summary New Discharge Prescriptions: New Multivitamins, Thera [Multivitamin (formulary)] 1 each PO DAILY tab FLUoxetine HCL [PROzac] 40 mg PO DAILY 30 Days #60 cap Mag Hydrox/Al Hydrox/Simeth [Maalox] 30 ml PO Q4HR PRN ml PRN Reason: Gi Upset Magnesium Hydroxide [Milk of Magnesia Concentrate] 2,400 mg PO DAILY PRN ml PRN Reason: Constipation Acetaminophen Tab [Tylenol] 650 mg PO Q4HR PRN tab PRN Reason: Pain/Discomfort Continue Omeprazole [PriLOSEC] 20 mg PO DAILY amLODIPine [Norvasc] 5 mg PO DAILY 30 Days #30 tab Discontinued Dextroamphetamine/Amphetamine [Adderall] 30 mg PO BID FLUoxetine HCL [PROzac] 20 mg PO DAILY Discharge Medication List Omeprazole [PriLOSEC] 20 mg PO DAILY 07/18/14 [History] Acetaminophen Tab [Tylenol] 650 mg PO Q4HR PRN tab 04/02/22 [Rx] FLUoxetine HCL [PROzac] 40 mg PO DAILY 30 Days #60 cap 04/02/22 [Rx] Mag Hydrox/Al Hydrox/Simeth [Maalox] 30 ml PO Q4HR PRN ml 04/02/22 [Rx] Magnesium Hydroxide [Milk of Magnesia Concentrate] 2,400 mg PO DAILY PRN ml 04/02/22 [Rx] Multivitamins, Thera [Multivitamin (formulary)] 1 each PO DAILY tab 04/02/22 [Rx] amLODIPine [Norvasc] 5 mg PO DAILY 30 Days #30 tab 04/02/22 [Rx] Follow up Appointment(s)/Referral(s): Shakila GAR [Other] - 04/08/22 1:00 pm (with Destiney)
--- NOTE | 2022-04-02 15:15 | P.DS ---
Providers Date of admission: 03/30/22 18:51 Expected date of discharge: 04/02/22 Attending physician: Wes Castro MD Consults: 03/30/22 18:55 Consult Physician Routine Consulting Provider: Drew Lucero Consult Reason/Comments: medical management Do you want consulting provider notified?: Already Contacted Primary care physician: Stated None - Discharge Diagnosis(es) (1) Depressive disorder Status: Acute Priority: High (2) Alcohol dependence Status: Acute Priority: Medium (3) Alcohol intoxication Status: Acute Priority: Medium Patient Condition at Discharge: Good Plan - Discharge Summary New Discharge Prescriptions: New Multivitamins, Thera [Multivitamin (formulary)] 1 each PO DAILY tab FLUoxetine HCL [PROzac] 40 mg PO DAILY 30 Days #60 cap Mag Hydrox/Al Hydrox/Simeth [Maalox] 30 ml PO Q4HR PRN ml PRN Reason: Gi Upset Magnesium Hydroxide [Milk of Magnesia Concentrate] 2,400 mg PO DAILY PRN ml PRN Reason: Constipation Acetaminophen Tab [Tylenol] 650 mg PO Q4HR PRN tab PRN Reason: Pain/Discomfort Continue Omeprazole [PriLOSEC] 20 mg PO DAILY amLODIPine [Norvasc] 5 mg PO DAILY 30 Days #30 tab Discontinued Dextroamphetamine/Amphetamine [Adderall] 30 mg PO BID FLUoxetine HCL [PROzac] 20 mg PO DAILY Discharge Medication List Omeprazole [PriLOSEC] 20 mg PO DAILY 07/18/14 [History] Acetaminophen Tab [Tylenol] 650 mg PO Q4HR PRN tab 04/02/22 [Rx] FLUoxetine HCL [PROzac] 40 mg PO DAILY 30 Days #60 cap 04/02/22 [Rx] Mag Hydrox/Al Hydrox/Simeth [Maalox] 30 ml PO Q4HR PRN ml 04/02/22 [Rx] Magnesium Hydroxide [Milk of Magnesia Concentrate] 2,400 mg PO DAILY PRN ml 04/02/22 [Rx] Multivitamins, Thera [Multivitamin (formulary)] 1 each PO DAILY tab 04/02/22 [Rx] amLODIPine [Norvasc] 5 mg PO DAILY 30 Days #30 tab 04/02/22 [Rx] Follow up Appointment(s)/Referral(s): Shakila GAR [Other] - 04/08/22 1:00 pm (with Destiney) [facility] - [facility] Week Patient Instructions/Handouts: Depression (DC), Abuse of Alcohol (DC) Activity/Diet/Wound Care/Special Instructions: Avoid the use of street drugs and alcohol. Take all prescriptions as prescribed. When you are in need of refills on your medications, please contact your medical provider and/or outpatient psychiatrist to have this done. Please go to scheduled outpatient appointment for aftercare treatment. If symptoms return or become worse, call the crisis line at and/or go to the nearest emergency room for evaluation.
== END 2022-04-02 13:02 | disposition home or self-care (01) | DRG 897 ==
LOC: 3MHU 18:51
PROVIDERS: ADMIT Psychiatry & Neurology Psychiatry; ATTEND Psychiatry & Neurology Psychiatry
DX: F10.229 Alcohol dependence with intoxication, unspecified (principal); K21.9 Gastro-esophageal reflux disease without esophagitis; I10 Essential (primary) hypertension; F90.9 Attention-deficit hyperactivity disorder, unspecified type; F41.9 Anxiety disorder, unspecified; F31.9 Bipolar disorder, unspecified; M19.90 Unspecified osteoarthritis, unspecified site; G89.29 Other chronic pain; M54.50 Low back pain, unspecified; Z71.41 Alcohol abuse counseling and surveillance of alcoholic; Y90.8 Blood alcohol level of 240 mg/100 ml or more; Z65.3 Problems related to other legal circumstances; Z79.899 Other long term (current) drug therapy; Z90.710 Acquired absence of both cervix and uterus; Z98.84 Bariatric surgery status; Z68.26 Body mass index [BMI] 26.0-26.9, adult; Z90.49 Acquired absence of other specified parts of digestive tract; Z87.19 Personal history of other diseases of the digestive system
CPT/HCPCS: 80061; 83036; 84436; 84439; 84443

== ENCOUNTER 2022-06-01 10:31 | Emergency (ER) | payer OTHER ==
[2022-06-01 10:41] VITALS: BP 168/103; PULSE 88; RESP 16; TEMP 97.7
--- NOTE | 2022-06-01 10:42 | ED ---
General Adult HPI - General Source: patient, RN notes reviewed Mode of arrival: ambulatory Limitations: no limitations <Harrison Sapp - Last Filed: 06/01/22 10:40> <Caroline Noble - Last Filed: 06/01/22 22:54> - General Stated complaint: Abd Pain Time Seen by Provider: 06/01/22 10:40 - History of Present Illness Initial comments: 46-year-old female presents emergency Department chief complaint left-sided abdominal pain. Patient states that she's had prior hernia repair and gastric bypass surgery. Patient states that she had worsening pain after she had an episode of emesis. Patient states it feels like it's locking up in her abdomen. She also complains of dysuria, urinary frequency. Patient states she had a pain in her abdomen prior to this. Patient denies reported fever no chest pain. (Harrison Sapp) Advanced triage note reviewed: Patient is a 46-year-old female is in severe emergency department with a chief complaint of abdominal pain x 1 week. She describes her pain as sharp and constant which radiates to her bilateral flank. She does admit to a history of kidney stones. She has not Tried anything for his symptoms. She also reports left lower quadrant pain that is sharp and worse with movement. She admits to a hernia repair surgery 16 years ago. She admits to history of cholecystectomy however denies appendectomy. Denies fever, chills, chest pain, palpitations, dysuria, hematuria. Last bowel movement was this morning and was normal for her. (Caroline Noble) - Related Data Home Medications Medication Instructions Recorded Confirmed Omeprazole [PriLOSEC] 20 mg PO DAILY 07/18/14 03/30/22 Previous Rx's Medication Instructions Recorded Acetaminophen Tab [Tylenol] 650 mg PO Q4HR PRN tab 04/02/22 FLUoxetine HCL [PROzac] 40 mg PO DAILY 30 Days #60 cap 04/02/22 Mag Hydrox/Al Hydrox/Simeth 30 ml PO Q4HR PRN ml 04/02/22 [Maalox] Magnesium Hydroxide [Milk of 2,400 mg PO DAILY PRN ml 04/02/22 Magnesia Concentrate] Multivitamins, Thera [Multivitamin 1 each PO DAILY tab 04/02/22 (formulary)] amLODIPine [Norvasc] 5 mg PO DAILY 30 Days #30 tab 04/02/22 Ketorolac [Toradol] 10 mg PO Q8HR #15 tab 06/01/22 Allergies Allergy/AdvReac Type Severity Reaction Status Date / Time No Known Allergies Allergy Verified 03/28/22 18:46 Review of Systems ROS Other: All systems not noted in ROS Statement are negative. <Harrison Sapp - Last Filed: 06/01/22 10:40> ROS Other: All systems not noted in ROS Statement are negative. <Caroline Noble - Last Filed: 06/01/22 22:54> ROS Statement: Those systems with pertinent positive or pertinent negative responses have been documented in the HPI. Past Medical History Past Medical History: GERD/Reflux, Hypertension, Osteoarthritis (OA) Additional Past Medical History / Comment(s): Chronic low back pain. History of Any Multi-Drug Resistant Organisms: None Reported Past Surgical History: Cholecystectomy, Hernia Repair, Hysterectomy Additional Past Surgical History / Comment(s): gastric bypass Past Anesthesia/Blood Transfusion Reactions: No Reported Reaction Past Psychological History: Anxiety, Bipolar, Depression Smoking Status: Never smoker Past Alcohol Use History: Daily Additional Past Alcohol Use History / Comment(s): Pt states she drinks daily but is unsure how many drinks per day. - Past Family History Mother Family Medical History: Cancer <Harrison Sapp - Last Filed: 06/01/22 10:40> General Exam General appearance: alert, in no apparent distress Head exam: Present: atraumatic, normocephalic, normal inspection Eye exam: Present: normal appearance, PERRL, EOMI. Absent: scleral icterus, c onjunctival injection, periorbital swelling ENT exam: Present: normal exam, mucous membranes moist Neck exam: Present: normal inspection. Absent: tenderness, meningismus, lymphadenopathy Respiratory exam: Present: normal lung sounds bilaterally. Absent: respiratory distress, wheezes, rales, rhonchi, stridor Cardiovascular Exam: Present: regular rate, normal rhythm, normal heart sounds. Absent: systolic murmur, diastolic murmur, rubs, gallop, clicks GI/Abdominal exam: Present: soft, tenderness (Bowel sounds present in all 4 quadrants. LLQ tenderness, BL CVA tenderness ), normal bowel sounds. Absent: distended, guarding, rebound, rigid Extremities exam: Present: normal inspection, full ROM, normal capillary refill. Absent: tenderness, pedal edema, joint swelling, calf tenderness Back exam: Present: normal inspection Neurological exam: Present: alert, oriented X3, CN II-XII intact Psychiatric exam: Present: normal affect, normal mood Skin exam: Present: warm, dry, intact, normal color. Absent: rash <Caroline Noble - Last Filed: 06/01/22 22:54> Course Vital Signs 06/01/22 10:37 Temperature 97.7 F Pulse Rate 88 Respiratory 16 Rate Blood Pressure 168/103 O2 Sat by Pulse 99 Oximetry Medical Decision Making - Lab Data Result diagrams: 06/01/22 10:47 06/01/22 10:47 <Caroline Noble - Last Filed: 06/01/22 22:54> - Medical Decision Making Was pt. sent in by a medical professional or institution ([facility], GEROPSYCHOLOGIST, urgent care, hospital, or fci...) When possible be specific@ -[No] Did you speak to anyone other than the patient for history (EMS, parent, family, police, friend...)? What history was obtained from this source @ -[No] Did you review nursing and triage notes (agree or disagree)? Why? @ -[I reviewed and agree with nursing and triage notes] Were old charts reviewed (outside hosp., previous admission, EMS record, old EKG, old radiological studies, urgent care reports/EKG's, fci records)? Report findings @ -[No old charts were reviewed] Differential Diagnosis (chest pain, altered mental status, abdominal pain women, abdominal pain men, vaginal bleeding, weakness, fever, dyspnea, syncope, headache, dizziness, GI bleed, back pain, seizure, CVA, palpatations, mental health)? @ -[not applicable] EKG interpreted by me (3pts min.). @ -[As above] X-rays interpreted by me (1pt min.). @ -[None done] CT interpreted by me (1pt min.). @ -remarkable for 3mm non-obstructing lithiasis at L UVJ, U/S interpreted by me (1pt. min.). @ -[None done] What testing was considered but not performed or refused? (CT, X-rays, U/S, l abs)? Why? @ -[None] What meds were considered but not given or refused? Why? @ -[None] Did you discuss the management of the patient with other professionals (professionals i.e. , PA, GEROPSYCHOLOGIST, lab, RT, psych nurse, social media content manager, video rental clerk, teacher, principal gifts officer, counseling case manager)? Give summary @ -[No] Was smoking cessation discussed for >3mins.? @ -[No] Was critical care preformed (if so, how long)? @ -[No] Were there social determinants of health that impacted care today? How? (Homelessness, low income, unemployed, alcoholism, drug addiction, transportation, low edu. Level, literacy, decrease access to med. care, nursing home, rehab)? @ -[No] Was there de-escalation of care discussed even if they declined (Discuss DNR or withdrawal of care, Hospice)? DNR status @ -[No] What co-morbidities impacted this encounter? (DM, HTN, Smoking, COPD, CAD, Cancer, CVA, ARF, Chemo, Hep., AIDS, mental health diagnosis, sleep apnea, morbid obesity)? @ -[None] Was patient admitted / discharged? Hospital course, mention meds given and route, prescriptions, significant lab abnormalities, going to OR and other p ertinent info. @ What he 6-year-old female presenting to the emergency department with bilateral flank pain. She has since history and physical performed which was remarkable for bilateral CVA tenderness. Lab work was essentially unremarkable. CT imaging reveals a 3 mm stone at the left UVJ. I discussed the results in detail with the patient, the patient verbalized understanding and all questions were addressed. Patient was given a referral for regla Archuleta gist recommended follow-up in 1-2 days. Patient was given Toradol and a few starter pack of Tylenol with Codeine. She was discharged in stable condition. I discussed the case with Dr. Keaton CP who agrees with plan of care Undiagnosed new problem with uncertain prognosis? @ L nephrolithiasis Drug Therapy requiring intensive monitoring for toxicity (Heparin, Nitro, Insulin, Cardizem)? @ -[No] Were any procedures done? @ -[No] Diagnosis/symptom? @ -L nephrolithiasis Acute, or Chronic, or Acute on Chronic? @ -acute Uncomplicated (without systemic symptoms) or Complicated (systemic symptoms)? @ -uncomplicated Side effects of treatment? @ -[No] Exacerbation, Progression, or Severe Exacerbation? @ -[No] Poses a threat to life or bodily function? How? (Chest pain, USA, SD, pneumonia, PE, COPD, DKA, ARF, appy, cholecystitis, CVA, Diverticulitis, Homicidal, Suicidal, threat to staff... and all critical care pts) @ likelihood (Caroline Noble) - Lab Data Lab Results 06/01/22 06/01/22 06/01/22 Range/Units 10:47 10:47 10:52 WBC 4.1 (3.8-10.6) k/uL RBC 4.32 (3.80-5.40) m/uL Hgb 13.8 (11.4-16.0) gm/dL Hct 40.5 (34.0-46.0) % MCV 93.7 (80.0-100.0) fL MCH 32.1 (25.0-35.0) pg MCHC 34.2 (31.0-37.0) g/dL RDW 13.7 (11.5-15.5) % Plt Count 189 (150-450) k/uL MPV 8.1 Neutrophils % 62 % Lymphocytes % 25 % Monocytes % 6 % Eosinophils % 4 % Basophils % 1 % Neutrophils # 2.6 (1.3-7.7) k/uL Lymphocytes # 1.0 (1.0-4.8) k/uL Monocytes # 0.2 (0-1.0) k/uL Eosinophils # 0.2 (0-0.7) k/uL Basophils # 0.0 (0-0.2) k/uL Sodium 139 (137-145) mmol/L Potassium 4.3 (3.5-5.1) mmol/L Chloride 104 (98-107) mmol/L Carbon Dioxide 30 (22-30) mmol/L Anion Gap 5 mmol/L BUN 14 (7-17) mg/dL Creatinine 0.54 (0.52-1.04) mg/dL Est GFR (CKD-EPI)AfAm >90 (>60 ml/min/1.73 sqM) Est GFR (CKD-EPI)NonAf >90 (>60 ml/min/1.73 sqM) Glucose 88 (74-99) mg/dL Plasma Lactic Acid Barrett (0.7-2.0) mmol/L Calcium 9.0 (8.4-10.2) mg/dL Total Bilirubin 0.7 (0.2-1.3) mg/dL AST 35 (14-36) U/L ALT 26 (4-34) U/L Alkaline Phosphatase 89 (38-126) U/L Total Protein 6.9 (6.3-8.2) g/dL Albumin 4.3 (3.5-5.0) g/dL Amylase 71 (30-110) U/L Lipase 65 (23-300) U/L Urine Color Light Yellow Urine Appearance Clear (Clear) Urine pH 7.0 (5.0-8.0) Ur Specific Parthenon 1.010 (1.001-1.035) Urine Protein Negative (Negative) Urine Glucose (UA) Negative (Negative) Urine Ketones Negative (Negative) Urine Blood Negative (Negative) Urine Nitrite Negative (Negative) Urine Bilirubin Negative (Negative) Urine Urobilinogen <2.0 (<2.0) mg/dL Ur Leukocyte Esterase Negative (Negative) 06/01/22 Range/Units 12:21 WBC (3.8-10.6) k/uL RBC (3.80-5.40) m/uL Hgb (11.4-16.0) gm/dL Hct (34.0-46.0) % MCV (80.0-100.0) fL MCH (25.0-35.0) pg MCHC (31.0-37.0) g/dL RDW (11.5-15.5) % Plt Count (150-450) k/uL MPV Neutrophils % % Lymphocytes % % Monocytes % % Eosinophils % % Basophils % % Neutrophils # (1.3-7.7) k/uL Lymphocytes # (1.0-4.8) k/uL Monocytes # (0-1.0) k/uL Eosinophils # (0-0.7) k/uL Basophils # (0-0.2) k/uL Sodium (137-145) mmol/L Potassium (3.5-5.1) mmol/L Chloride (98-107) mmol/L Carbon Dioxide (22-30) mmol/L Anion Gap mmol/L BUN (7-17) mg/dL Creatinine (0.52-1.04) mg/dL Est GFR (CKD-EPI)AfAm (>60 ml/min/1.73 sqM) Est GFR (CKD-EPI)NonAf (>60 ml/min/1.73 sqM) Glucose (74-99) mg/dL Plasma Lactic Acid Barrett 1.0 (0.7-2.0) mmol/L Calcium (8.4-10.2) mg/dL Total Bilirubin (0.2-1.3) mg/dL AST (14-36) U/L ALT (4-34) U/L Alkaline Phosphatase (38-126) U/L Total Protein (6.3-8.2) g/dL Albumin (3.5-5.0) g/dL Amylase (30-110) U/L Lipase (23-300) U/L Urine Color Urine Appearance (Clear) Urine pH (5.0-8.0) Ur Specific Parthenon (1.001-1.035) Urine Protein (Negative) Urine Glucose (UA) (Negative) Urine Ketones (Negative) Urine Blood (Negative) Urine Nitrite (Negative) Urine Bilirubin (Negative) Urine Urobilinogen (<2.0) mg/dL Ur Leukocyte Esterase (Negative) Disposition <Harrison Sapp - Last Filed: 06/01/22 10:40> Is patient prescribed a controlled substance at d/c from ED?: No Time of Disposition: 13:23 <Caroline Noble - Last Filed: 06/01/22 22:54> Clinical Impression: Nephrolithiasis Disposition: HOME SELF-CARE Condition: Stable Instructions (If sedation given, give patient instructions): Kidney Stones (ED) Additional Instructions: These return to the nearest emergency department if symptoms worsen or persist. Prescriptions: Ketorolac [Toradol] 10 mg PO Q8HR #15 tab Referrals: None,Stated [Primary Care Provider] - 1-2 days Dante Choi MD [STAFF PHYSICIAN] - 1-2 days
[2022-06-01 11:03] LABS: Basophils % (A) 1 %; Eosinophils # (A) 0.2 k/uL (0-0.7); Eosinophils % (A) 4 %; HCT 40.5 % (34.0-46.0); HGB 13.8 gm/dL (11.4-16.0); Lymphocytes % (A) 25 %; MCH 32.1 pg (25.0-35.0); MCHC 34.2 g/dL (31.0-37.0); MCV 93.7 fL (80.0-100.0); Mean Platelet Volume 8.1; Monocytes # (A) 0.2 k/uL (0-1.0); Monocytes % (A) 6 %; Neutrophils # (A) 2.6 k/uL (1.3-7.7); Neutrophils % (A) 62 %; Platelet Count 189 k/uL (150-450); RBC 4.32 m/uL (3.80-5.40); RDW 13.7 % (11.5-15.5); WBC 4.1 k/uL (3.8-10.6)
[2022-06-01 11:05] LABS: Appearance,Urine Clear (Clear); Bilirubin,Urine Negative (Negative); Blood,Urine Negative (Negative); Color,Urine Light Yellow; Glucose,Urine (UA) Negative (Negative); Ketones,Urine Negative (Negative); Leukocyte Esterase,Urine Negative (Negative); Nitrite,Urine Negative (Negative); Protein,Urine Negative (Negative); Urobilinogen,Urine <2.0 mg/dL (<2.0)
[2022-06-01 11:13] LABS: ALT 26 U/L (4-34); AST 35 U/L (14-36); African American GFR (CKD) >90 (>60 ml/min/1.73 sqM); Albumin 4.3 g/dL (3.5-5.0); Alkaline Phosphatase 89 U/L (38-126); Amylase 71 U/L (30-110); Anion Gap 5 mmol/L; Blood Urea Nitrogen 14 mg/dL (7-17); Carbon Dioxide 30 mmol/L (22-30); Chloride 104 mmol/L (98-107); Glucose 88 mg/dL (74-99); Lipase 65 U/L (23-300); Non-African American GFR(CKD) >90 (>60 ml/min/1.73 sqM); Potassium 4.3 mmol/L (3.5-5.1); Sodium 139 mmol/L (137-145); Total Bilirubin 0.7 mg/dL (0.2-1.3); Total Protein 6.9 g/dL (6.3-8.2)
[2022-06-01] MEDS ORDERED: SODIUM CHLORIDE 0.9% 1,000 ML IV ONE (12:18)
[2022-06-01] MEDS ORDERED: KETOROLAC 15 MG/ML 1 ML VIAL IVP STA (12:19)
--- NOTE | 2022-06-01 13:07 | CT ---
EXAMINATION TYPE: CT abdomen pelvis wo con CT DLP: 662 mGycm, Automated exposure control for dose reduction was used. DATE OF EXAM: 06/01/2022 12:45 PM COMPARISON: CT abdomen pelvis most recent from 03/17/2019 CLINICAL INDICATION:Female, 46 years old with history of r/out nephrolithiasis; Bilateral flank pain, anterior left abdominal pain TECHNIQUE: Axial CT of the abdomen and pelvis. Sagittal and coronal reformats were created on a [employer] workstation. Contrast used: None Oral contrast used: without Oral Contrast FINDINGS: LOWER CHEST: Right Bochdalek fat-containing hernia. ABDOMEN LIVER: Unremarkable GALLBLADDER AND BILE DUCTS: The gallbladder is surgically absent. PANCREAS: Unremarkable. SPLEEN: Unremarkable. ADRENAL GLANDS: Unremarkable. KIDNEYS AND URETERS: No evidence of right hydronephrosis. There is extrarenal pelvis on the right. No nobstructing right renal calculus measuring 3 mm. Upper ureter is visualized and grossly unremarkable . The distal right ureter is not feeling seen. The left kidney demonstrates nonobstructing calculi me asuring up to 4 mm. The left collecting system appears decompressed. Possible 3 mm stone at the urete rovesicular junction on the left. PELVIS BLADDER: Unremarkable REPRODUCTIVE: Unremarkable. ABDOMEN & PELVIS STOMACH AND BOWEL: No evidence of bowel obstruction. Surgical changes to the stomach and distal esoph baldomero small hiatal hernia. Large stool burden throughout the colon. Scattered clonic diverticula prese nt. PERITONEUM/RETROPERITONEUM: No evidence of pneumoperitoneum or free fluid. . VASCULATURE: No evidence of aortic aneurysm. Mild atherosclerosis of the arterial vasculature. MUSCULOSKELETAL: No acute osseous abnormalities, mild degeneration changes throughout the spine. LYMPH NODES: No gross evidence for lymphadenopathy. SOFT TISSUE/ABDOMINAL WALL: Surgical changes anterior abdominal wall. IMPRESSION: 1. Left ureterovesicular Junction 3 mm calculus suggested. No significant left-sided hydronephrosis. 2. Bilateral nonobstructing renal calculi. 3. Appendix is normal. 4. Clonic diverticulosis. 5. Large stool burden throughout the colon. 6. Small hiatal hernia.
[2022-06-01] MEDS ORDERED: HYDROmorphone 0.5 MG/0.5 ML SYRINGE IVP STA (13:22)
[2022-06-01] MEDS ORDERED: ACET/COD 300 MG/30 MG STARTER PACK 6 TAB BTL PO STA (13:22)
== END 2022-06-01 13:43 | disposition home or self-care (01) ==
LOC: EC 10:31
DX: N20.0 Calculus of kidney (principal); I10 Essential (primary) hypertension; F41.9 Anxiety disorder, unspecified; F31.9 Bipolar disorder, unspecified; K21.9 Gastro-esophageal reflux disease without esophagitis; Z79.899 Other long term (current) drug therapy
CPT/HCPCS: 36415; 80053; 82150; 83605; 83690; 85025; 81003; 74176; 99284; 96374; 96375; 96361; J1885; J1170

== ENCOUNTER 2022-08-14 21:30 | Inpatient (IN) | payer OTHER ==
[2022-08-14] MEDS ORDERED: NALOXONE 0.4 MG/ML 1 ML VIAL IV PRN (22:44)
[2022-08-14] MEDS ORDERED: ACETAMINOPHEN TAB 325 MG TAB PO PRN (22:51)
[2022-08-14] MEDS ORDERED: LORazepam 2 MG/ML INJ IV PRN (22:55)
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
[2022-08-15] MEDS: chlordiazePOXIDE 25 MG CAP PO PRN (03:52)
[2022-08-15] MEDS: LORazepam 2 MG/ML INJ IV PRN ×6 (06:53→23:42)
[2022-08-15] MEDS: THIAMINE 100 MG TAB PO SCH (09:11)
[2022-08-15] MEDS ORDERED: cloNIDine HCL 0.1 MG TAB PO PRN (12:23)
[2022-08-15 12:46] LABS: Basophils % (A) 0 %; Eosinophils % (A) 0 %; HCT 41.5 % (34.0-46.0); HGB 14.4 gm/dL (11.4-16.0); Lymphocytes # (A) 0.8 k/uL (1.0-4.8); Lymphocytes % (A) 15 %; MCH 31.6 pg (25.0-35.0); MCHC 34.8 g/dL (31.0-37.0); MCV 90.9 fL (80.0-100.0); Mean Platelet Volume 7.4; Monocytes # (A) 0.2 k/uL (0-1.0); Monocytes % (A) 4 %; Neutrophils # (A) 4.2 k/uL (1.3-7.7); Neutrophils % (A) 79 %; Platelet Count 214 k/uL (150-450); RBC 4.56 m/uL (3.80-5.40); RDW 13.4 % (11.5-15.5); WBC 5.4 k/uL (3.8-10.6)
[2022-08-15 13:00] LABS: ALT 36 U/L (4-34); AST 50 U/L (14-36); African American GFR (CKD) >90 (>60 ml/min/1.73 sqM); Albumin 4.2 g/dL (3.5-5.0); Albumin/Globulin Ratio 1.6; Alkaline Phosphatase 152 U/L (38-126); Anion Gap 9 mmol/L; Blood Urea Nitrogen 13 mg/dL (7-17); Carbon Dioxide 26 mmol/L (22-30); Chloride 102 mmol/L (98-107); Globulin 2.6 g/dL; Glucose 110 mg/dL (74-99); Lipase 59 U/L (23-300); Non-African American GFR(CKD) >90 (>60 ml/min/1.73 sqM); Potassium 3.8 mmol/L (3.5-5.1); Sodium 137 mmol/L (137-145); Total Bilirubin 1.4 mg/dL (0.2-1.3); Total Protein 6.8 g/dL (6.3-8.2)
[2022-08-15] MEDS: cloNIDine HCL 0.1 MG TAB PO SCH ×3 (13:09→21:55)
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
[2022-08-15] MEDS: chlordiazePOXIDE 25 MG CAP PO SCH ×2 (16:22→21:53)
[2022-08-15] MEDS: KETOROLAC 15 MG/ML 1 ML VIAL IVP PRN (16:41)
[2022-08-15] MEDS ORDERED: IOPAMIDOL CONTRAST (ORAL USE) VIAL PO PRN (21:29)
[2022-08-15] MEDS: HYDROcodone/APAP 5-325MG 1 EACH TAB PO PRN (21:53)
[2022-08-15] MEDS: lamoTRIgine 100 MG TAB PO SCH (21:53)
[2022-08-15] MEDS: OXcarbazepine 150 MG TAB PO SCH (23:43)
[2022-08-16] MEDS: LORazepam 2 MG/ML INJ IV PRN ×4 (02:12→20:59)
[2022-08-16] MEDS: KETOROLAC 15 MG/ML 1 ML VIAL IVP PRN ×2 (02:15→09:14)
[2022-08-16] MEDS: HYDROcodone/APAP 5-325MG 1 EACH TAB PO PRN ×3 (06:40→21:06)
[2022-08-16] MEDS: OXcarbazepine 150 MG TAB PO SCH ×2 (08:04→21:00)
[2022-08-16] MEDS: chlordiazePOXIDE 25 MG CAP PO SCH ×3 (08:04→21:00)
[2022-08-16] MEDS: THIAMINE 100 MG TAB PO SCH (08:04)
[2022-08-16] MEDS: cloNIDine HCL 0.1 MG TAB PO SCH ×3 (08:04→21:00)
[2022-08-16] MEDS: FLUoxetine HCL 20 MG CAP PO SCH (08:04)
--- NOTE | 2022-08-16 08:58 | CT ---
EXAMINATION TYPE: CT abdomen pelvis wo con DATE OF EXAM: 08/16/2022 COMPARISON: 06/01/2022 INDICATION: RIGHT FLANK PAIN DLP: 518.4 mGycm, Automated exposure control for dose reduction was used. CONTRAST: 0 mL of Isovue 300. Study performed without Oral Contrast TECHNIQUE: Axial images were obtained from above the diaphragm to the pubic rami in the axial plane a t 5 mm thick sections. Reconstructed images are reviewed on the computer in the coronal plane. FINDINGS: Limited CT sections are obtained the lung bases. The lung bases are clear. There is a hiatal hernia . This appears to include portion of the gastric sleeve. CT ABDOMEN: Liver: Normal Spleen: Normal Pancreas: Normal Adrenal glands: The adrenal glands are normal. Gallbladder: Surgically absent Kidneys: No masses are evident. No hydronephrosis is present. No cysts are present. Nonobstructing 0.6 cm renal stone at the mid left kidney. Punctate nonobstructing 0.2 cm renal stone in the mid rig ht kidney. Aorta: Vascular calcification is within the aorta. Inferior vena cava: Normal. CT PELVIS: Left upper quadrant bowel surgery is evident. No dilated loops of bowel are evident. Stomach appears to have prior gastric. Studies lateral contrast limiting bowel evaluation. Appendix: Normal as visualized. Urinary bladder: Normal. Genitourinary structures: Uterus and ovaries are not identified. Osseous structures: No suspicious lytic or sclerotic lesions evident. IMPRESSIONS: 1. Nonobstructing bilateral renal stones. 2. Hiatal hernia which includes a portion of the gastric sleeve.
[2022-08-16 09:22] LABS: Basophils # (A) 0.02 X 10*3/uL (0.00-0.10); Basophils % (A) 0.7 %; Eosinophils # (A) 0.07 X 10*3/uL (0.04-0.35); Eosinophils % (A) 2.4 %; HCT 37.5 % (37.2-46.3); HGB 12.4 g/dL (12.0-15.0); Immature Grans, Automated 0.3 %; Lymphocytes # (A) 1.11 X 10*3/uL (0.90-5.00); Lymphocytes % (A) 37.9 %; MCH 30.8 pg (27.0-32.0); MCHC 33.1 g/dL (32.0-37.0); MCV 93.3 fL (80.0-97.0); Mean Platelet Volume 10.1 fL (9.5-12.2); Monocytes # (A) 0.22 X 10*3/uL (0.20-1.00); Monocytes % (A) 7.5 %; NRBC Per 100 WBC 0 /100 WBCS (0.0-0.0); Neutrophils % (A) 51.2 %; Platelet Count 155 X 10*3/uL (140-440); RBC 4.02 X 10*6/uL (4.10-5.20); RDW 12.7 % (11.5-14.5); WBC 2.93 X 10*3/uL (4.50-10.00)
[2022-08-16 09:53] LABS: African American GFR (CKD) 125.8 (60.0-200.0); Albumin 3.8 g/dL (3.8-4.9); Albumin/Globulin Ratio 2.11 (1.60-3.17); Anion Gap 10.1 mmol/L (10.00-18.00); BUN/Creat Ratio 20.83 Ratio (12.00-20.00); Blood Urea Nitrogen 12.5 mg/dL (9.0-27.0); Carbon Dioxide 27.9 mmol/L (20.0-27.5); Globulin 1.8 g/dL (1.6-3.3); Non-African American GFR(CKD) 108.5 (60.0-200.0); Potassium 3.3 mmol/L (3.5-5.5); Total Bilirubin 1.1 mg/dL (0.30-1.20); Total Protein 5.6 g/dL (6.2-8.2)
[2022-08-16] MEDS ORDERED: Potassium Replacement Protocol 1 EACH MISC MISCELLANE PRN (11:14)
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
[2022-08-16] MEDS: POTASSIUM CHLORIDE ER 20 MEQ TAB.ER PO SCH ×2 (12:34→12:35)
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
[2022-08-16] MEDS: ONDANSETRON 4 MG/2 ML VIAL IVP PRN (18:02)
[2022-08-16] MEDS: lamoTRIgine 100 MG TAB PO SCH (21:00)
[2022-08-16] MEDS: MELATONIN 3 MG TABLET PO SCH (21:00)
[2022-08-17] MEDS: HYDROcodone/APAP 5-325MG 1 EACH TAB PO PRN ×4 (02:38→22:16)
[2022-08-17 09:16] LABS: Basophils # (A) 0.02 X 10*3/uL (0.00-0.10); Basophils % (A) 0.7 %; Eosinophils # (A) 0.12 X 10*3/uL (0.04-0.35); Eosinophils % (A) 4.3 %; HCT 39.5 % (37.2-46.3); HGB 12.9 g/dL (12.0-15.0); Immature Grans, Automated 0.4 %; Lymphocytes # (A) 1.23 X 10*3/uL (0.90-5.00); Lymphocytes % (A) 43.9 %; MCH 30.9 pg (27.0-32.0); MCHC 32.7 g/dL (32.0-37.0); MCV 94.5 fL (80.0-97.0); Mean Platelet Volume 10.1 fL (9.5-12.2); Monocytes % (A) 7.1 %; NRBC Per 100 WBC 0 /100 WBCS (0.0-0.0); Neutrophils # (A) 1.22 X 10*3/uL (1.80-7.70); Neutrophils % (A) 43.6 %; Platelet Count 144 X 10*3/uL (140-440); RBC 4.18 X 10*6/uL (4.10-5.20); RDW 12.9 % (11.5-14.5)
[2022-08-17 09:23] LABS: African American GFR (CKD) 119.6 (60.0-200.0); Albumin 3.8 g/dL (3.8-4.9); Anion Gap 9.8 mmol/L (10.00-18.00); BUN/Creat Ratio 22.57 Ratio (12.00-20.00); Blood Urea Nitrogen 15.8 mg/dL (9.0-27.0); Calcium 9.1 mg/dL (8.7-10.3); Carbon Dioxide 27.2 mmol/L (20.0-27.5); Globulin 1.9 g/dL (1.6-3.3); Non-African American GFR(CKD) 103.2 (60.0-200.0); Total Bilirubin 0.5 mg/dL (0.30-1.20); Total Protein 5.7 g/dL (6.2-8.2)
[2022-08-17] MEDS: cloNIDine HCL 0.1 MG TAB PO SCH ×3 (10:12→21:09)
[2022-08-17] MEDS: OXcarbazepine 150 MG TAB PO SCH ×2 (10:12→21:08)
[2022-08-17] MEDS: FLUoxetine HCL 20 MG CAP PO SCH (10:12)
[2022-08-17] MEDS: chlordiazePOXIDE 25 MG CAP PO SCH ×3 (10:12→21:09)
[2022-08-17] MEDS: THIAMINE 100 MG TAB PO SCH (10:12)
[2022-08-17] MEDS: ONDANSETRON 4 MG/2 ML VIAL IVP PRN (10:29)
[2022-08-17] MEDS: DOCUSATE 100 MG CAP PO SCH ×2 (10:29→21:08)
[2022-08-17] MEDS: LORazepam 2 MG/ML INJ IV PRN ×4 (12:53→23:49)
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
[2022-08-17] MEDS: MELATONIN 3 MG TABLET PO SCH (21:08)
[2022-08-17] MEDS: lamoTRIgine 100 MG TAB PO SCH (21:08)
[2022-08-18] MEDS: HYDROcodone/APAP 5-325MG 1 EACH TAB PO PRN ×3 (03:55→17:42)
[2022-08-18] MEDS: chlordiazePOXIDE 25 MG CAP PO PRN (05:54)
[2022-08-18] MEDS: OXcarbazepine 150 MG TAB PO SCH (09:06)
[2022-08-18] MEDS: THIAMINE 100 MG TAB PO SCH (09:06)
[2022-08-18] MEDS: chlordiazePOXIDE 25 MG CAP PO SCH ×2 (09:06→16:29)
[2022-08-18] MEDS: FLUoxetine HCL 20 MG CAP PO SCH (09:06)
[2022-08-18] MEDS: cloNIDine HCL 0.1 MG TAB PO SCH ×2 (09:06→16:30)
[2022-08-18] MEDS: DOCUSATE 100 MG CAP PO SCH (09:07)
[2022-08-18 09:08] VITALS: TEMP 97.9
[2022-08-18] MEDS: KETOROLAC 15 MG/ML 1 ML VIAL IVP PRN (12:11)
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
[2022-08-18 15:18] VITALS: BP 98/67; PULSE 67; RESP 16
== END 2022-08-18 18:25 | disposition home or self-care (01) | DRG 775 ==
LOC: EC 21:30 → OBSVTOIN 22:44 → 4SSUR 22:44
PROVIDERS: ADMIT Hospitalist; ATTEND Hospitalist
PROC: HZ2ZZZZ Detoxification Services for Substance Abuse Treatment (ICD-10-PCS; principal; 2022-08-15)
DX: F10.229 Alcohol dependence with intoxication, unspecified (principal); F10.231 Alcohol dependence with withdrawal delirium; F17.210 Nicotine dependence, cigarettes, uncomplicated; F41.9 Anxiety disorder, unspecified; Y90.8 Blood alcohol level of 240 mg/100 ml or more; F31.9 Bipolar disorder, unspecified; E87.6 Hypokalemia; I10 Essential (primary) hypertension; Z71.41 Alcohol abuse counseling and surveillance of alcoholic; G89.29 Other chronic pain; M54.50 Low back pain, unspecified; M19.90 Unspecified osteoarthritis, unspecified site; K44.9 Diaphragmatic hernia without obstruction or gangrene; N20.0 Calculus of kidney; R45.851 Suicidal ideations; V87.8XXA Person injured in other specified noncollision transport accidents involving motor vehicle (traffic), initial encounter; Z90.710 Acquired absence of both cervix and uterus; Z87.19 Personal history of other diseases of the digestive system; Z98.84 Bariatric surgery status; Z79.899 Other long term (current) drug therapy
CPT/HCPCS: 74176; 80053; 82075; 83690; 83735; 85025; 96374; 96375; 96376; 99285